=== PATIENT | male | born 1960 | race Caucasian/White ===

== ENCOUNTER → 2019-11-24 13:49 | Outpatient (CLI) | payer OTHER, SELFPAY ==
--- NOTE | ~2019-11-24 | XR_ITS ---
EXAMINATION: XR chest 2V DATE: 11/24/2019 14:09 INDICATION: Cough. TECHNIQUE: Frontal and lateral views of the chest were obtained. COMPARISON: CT abdomen and pelvis 11/20/2018 FINDINGS: The chest demonstrates clear lungs without pneumonia, pleural effusion, or pneumothorax. Th e heart size is normal. There is a prominent left paracardial fat pad. IMPRESSION: 1. No acute cardiopulmonary disease. Reviewed, dictated and finalized at location A. IPPING CLERK
== END ==
PROVIDERS: PCP Family Medicine; Visit Provider Family Medicine
DX: R05 Cough (principal)
CPT/HCPCS: 71046

== ENCOUNTER 2020-11-13 09:17 | Outpatient (CLI) | payer OTHER, SELFPAY ==
--- NOTE | 2020-11-30 12:39 | WPDHOMESLEEP ---
Sleep Study - Home Unattended Date of Study: 11/13/20 Ordering Provider: Karthikeyan Tyler MD Interpreting Provider: Erin Moura MD Home Sleep Study Type: Apnea Link Air Height: 1.75 m Weight: 164.654 kg Body Mass Index: 53.6 Neck Circumference (inches): 18.5 Coggon: 11 Reason for Sleep Study Difficulty staying asleep, waking at night to urinate, occasional insomnia Sleep History Valentino Winn is a 60 year old man who at times has difficulty getting to sleep and staying asleep. This has been going on for up to 10 years. He routinely wakes up at least twice to urinate. He rarely awakens from sleep feeling short of breath. He occasionally awakens at night with heartburn, belching or coughing. He rarely snores loudly enough that others complain. He occasionally has trouble sleep with a cold. He rarely wakes up gasping for breath at night. He rarely has breathing problems at night observed by others. He occasionally sweats excessively night, rarely notices his heart pounding or beating irregularly at night. He frequently falls asleep during the day but never involuntarily. He rarely falls asleep while driving. He does not fall asleep while exerting physical effort. He does not have loss of muscle tone with strong emotion. He rarely has daytime difficulties due to excessive sleepiness. He does not feel paralyzed on waking or falling asleep and does not have vivid dream like scenes upon awakening or falling asleep. He never feels afraid to go to sleep. He rarely has nightmares. He occasionally remembers his dreams. He frequently has racing thoughts. He rarely feels sad depressed or anxious. He frequently has muscular tension. He never notices parts of his body jerking. He does not kick at night. He occasionally has crawling and aching feelings in his legs and occasionally has leg cramps at night. He does not have morning jaw pain. He rarely grinds his teeth during sleep. He occasionally has bothered by pain during the day. He rarely is awakened by pain at night. He frequently wakes up feeling stiff in the morning with sore achy muscles and pain in the neck and spine. He has dizziness on rare occasion, insomnia, fatigue and feels tense. His normal bedtime is 9:00 p.m. falling asleep within 20 minutes, typically waking 2-3 times at night to urinate. While awake he may watch television. He often is able to return to sleep within 5 minutes. He wakes the morning at 4:45 a.m.. On weekends he stays awake later, 11:00 p.m. and wakes later between 7 and 8:00 a.m.. He estimates getting 6-7 hours of sleep at night. He takes naps in the afternoon or evening. He may feel refreshed after short nap. Most of the time he feels good in the morning. Habits: He smoked tobacco years ago. He drinks caffeine 3 cups a day. No alcohol or recreational drugs. [facility] Past Medical History Medical History HTN (hypertension), benign Morbid obesity with BMI of 50.0-59.9, adult Rotator cuff dysfunction (~2017) Sexual dysfunction Sleep disorder Surgical History Surgical History H/O eye surgery H/O hernia repair (~1987) Family History Family History Grandparent Diabetes mellitus Social History Social History Smoking status: Never smoker Smoking end date: 09/28/83 Alcohol intake: current Medications Home Medications Medication Instructions Recorded Confirmed Type aspirin 81 mg tablet,delayed 81 mg PO DAILY 11/09/19 10/03/20 History release multivitamin 1 tablet PO DAILY 11/09/19 10/03/20 History cinnamon bark 500 mg capsule 1,000 mg PO DAILY cap 10/03/20 10/03/20 History cyanocobalamin (vitamin B-12) 2,500 mcg PO DAILY 10/03/20 10/03/20 History 2,500 mcg tablet potassium gluconate 600 mg (
[2020-11-30 12:45] VITALS: BMI 53.6
== END 2020-11-13 09:18 | disposition home or self-care (01) ==
LOC: ANHCSM 09:18
PROVIDERS: PCP Family Medicine; Visit Provider Family Medicine
DX: G47.33 Obstructive sleep apnea (adult) (pediatric) (principal)
CPT/HCPCS: 95806

== ENCOUNTER 2020-12-10 16:32 | Outpatient (CLI) | payer OTHER, SELFPAY | END 2020-12-10 16:33 | disposition home or self-care (01) | LOC: ANHCOVIDVC 16:33 | PROVIDERS: PCP Family Medicine | DX: Z23 Encounter for immunization (principal) | CPT/HCPCS: 0001A; 91300 ==

== ENCOUNTER → 2020-12-25 00:31 | Outpatient (CLI) | payer OTHER, SELFPAY ==
[2020-12-25 18:30] LABS: SARS-CoV-2 RNA PCR Negative
== END ==
PROVIDERS: PCP Family Medicine; Visit Provider Internal Medicine Critical Care Medicine
DX: Z01.812 Encounter for preprocedural laboratory examination (principal); Z20.822 Contact with and (suspected) exposure to COVID-19
CPT/HCPCS: C9803; U0003; U0005

== ENCOUNTER 2020-12-27 06:59 | Outpatient (CLI) | payer OTHER, SELFPAY ==
--- NOTE | 2021-01-11 10:46 | WPDSLEEPSTUD ---
Sleep Study Ordering Provider: Karthikeyan Tyler MD Interpreting Physician: Deepak Cervantes MD Sleep Study Type: CPAP Titration Height: 1.78 m Weight: 149.685 kg Body Mass Index: 47.3 Neck Circumference (inches): 18 Jackson: 0 Reason for Sleep Study This patient has had prior sleep study in October of 2020 documenting presence of severe obstructive sleep apnea. 15% of his apneic events were either central or mixed variety. For this reason the patient was recommended to have in-lab positive airway pressure titration. Sleep History History of snoring, poor quality of sleep. During his home sleep study patient mentioned moderate sleepiness with an Jackson scale of 11/24. . History of hypertension and erectile dysfunction. [facility] Past Medical History Medical History HTN (hypertension), benign Morbid obesity with BMI of 50.0-59.9, adult Rotator cuff dysfunction (~2017) Sexual dysfunction Sleep disorder Surgical History Surgical History H/O eye surgery H/O hernia repair (~1987) Family History Family History Grandparent Diabetes mellitus Social History Social History Smoking end date: 09/28/83 Alcohol intake: current Medications Home Medications Medication Instructions Recorded Confirmed Type aspirin 81 mg tablet,delayed 81 mg PO DAILY 11/09/19 10/03/20 History release multivitamin 1 tablet PO DAILY 11/09/19 10/03/20 History cinnamon bark 500 mg capsule 1,000 mg PO DAILY cap 10/03/20 10/03/20 History cyanocobalamin (vitamin B-12) 2,500 mcg PO DAILY 10/03/20 10/03/20 History 2,500 mcg tablet potassium gluconate 600 mg (99 mg) 600 mg PO DAILY 10/03/20 10/03/20 History tablet sildenafil 100 mg tablet 100 mg PO DAILY PRN #10 tablet 10/03/20 10/03/20 Rx lisinopril 20 mg tablet 20 mg PO DAILY #90 tablet 11/22/20 Rx Sleep Procedure Patient underwent overnight polysomnographic evaluation for positive airway pressure titration. Patient was started on a CPAP of 5 cm however quickly became intolerant and was subsequently titrated on BiPAP mode. Patient used ResMed air F-30 fullface mask. The size of the mask was not mentioned. Sleep Architecture Total recording time 445 minutes, total sleep time 392 minutes, sleep efficiency 88.1%. Sleep latency 6 minutes, REM latency 86 minutes. Awake after sleep onset 46 minutes, stage N1 3.9%, N2 59.9%, N3 0%, stage R 36.2%. Supine sleep 98.3%, supine REM sleep 36.2%. Respiratory Analysis AASM criteria used Patient had 9 apneas with index 1.4, obstructive 5 with index 0.8, central 4 with index 0.6 . There were 40 hypopneas with index 6.1 . AHI 7.5. REM index 14.4, non-REM index 3.6. Supine index 7.3, nonsupine index 18.5. Arousals Total arousals 57 with index 7.7. Spontaneous arousals 34, snores arousals 16, hypopnea arousals 4, apnea arousals 1, leg movement arousals 2. Periodic Limb Movements There were 11 leg movements with index 1.7, 2 arousals with index 0.3. No PLM. Oximetry Data Mean oxygen saturation 93%, lowest saturation 84%. .SaO2<90%-9.2Min, SaO2<88%-1.1Min. Snoring Profile Moderate snoring, was continuous during lower pressure settings. Cardiac Profile Normal sinus rhythm with average heart rate 53 beats per minute, range 27 to 141 beats per minute. EEG Profile Unremarkable EEG. Assessment and Plan Additional Plan Diagnosis -SHANITA G44.37 as noted patient was intolerant of CPAP even at 5 cm. Patient was therefore titrated on BiPAP. Patient use F-30 full face mask. Patient was started on BiPAP at a low level of 8/4 cm and because of obstructive events and snoring was increased to a maximum level of 24/20 cm. At 24/20 cm BiPAP - 51 minutes of trial was performed with 90% sleep effi
[2021-01-11 11:09] VITALS: BMI 47.3
== END 2020-12-27 07:00 | disposition home or self-care (01) ==
LOC: ANHCSM 06:59
PROVIDERS: PCP Family Medicine; Visit Provider Family Medicine
DX: G47.33 Obstructive sleep apnea (adult) (pediatric) (principal)
CPT/HCPCS: 95811

== ENCOUNTER 2020-12-31 16:31 | Outpatient (CLI) | payer OTHER, SELFPAY | END 2020-12-31 16:32 | disposition home or self-care (01) | LOC: ANHCOVIDVC 16:31 | PROVIDERS: PCP Family Medicine | DX: Z23 Encounter for immunization (principal) | CPT/HCPCS: 0002A; 91300 ==

== ENCOUNTER → 2021-01-26 08:20 | Outpatient (CLI) | payer OTHER, SELFPAY ==
--- NOTE | ~2021-01-26 | MR_ITS ---
EXAMINATION: MR femur LT wo con, MR knee LT wo con DATE: 01/26/2021 INDICATION: Left knee and posterior thigh pain. TECHNIQUE: 1. Magnetic resonance imaging (MRI) of the left thigh/femur was performed without intravenous contras t. Sequences included axial T1-weighted FSE, axial T2-weighted FS FSE, coronal T1-weighted FSE, coron al fluid sensitive FSE STIR, sagittal T1-weighted FSE and sagittal fluid sensitive FSE STIR. The cont ralateral right thigh is included on the coronal images. 2. MRI of the left knee was performed without intravenous contrast. Sequences included coronal PD-we ighted FSE, coronal PD-weighted FS FSE, sagittal T2-weighted FSE, sagittal PD-weighted FS FSE and axi al PD weighted fat saturated FSE. COMPARISON: None. FINDINGS: Left thigh/femur: Bone marrow signal is normal throughout the bilateral femurs and visualized inferior pelvis. There is relatively symmetric moderate fatty atrophy versus infiltration of the semimembranosus and biceps fe kenney muscles in both eyes. Remaining musculature of the bilateral thighs appears normal. The proxima l hamstring tendons at their ischial tuberosity origin appear normal with no evident tear. Left hip j oint appears unremarkable with no joint effusion. Neurovascular structures in the left thigh appear n ormal. No abnormal mass or fluid collections identified. Left knee: Medial compartment: Additional horizontal tear extending to the inferior articular surface at the posterior horn of the m edial meniscus. There is some chondral surface regularity and underlying subtle irregularity to the a rticular cortex at the posterior weightbearing medial femoral condyle. Cartilage at the anterior to c entral weightbearing medial femoral condyle and medial tibial plateau appear relatively preserved. Lateral compartment: Lateral meniscus is normal. Partial-thickness chondral fissuring along the posterior margin of the la teral tibial plateau. Patellofemoral compartment: Small focus of deep chondral ulceration with underlying mild cortical irregularity at the inferior as pect of the medial trochlea. Remaining patellofemoral cartilage appears relatively preserved. Ligaments and tendons: Anterior and posterior cruciate ligaments are normal. The fibular collateral ligament complex is norm al. There is mild fluid signal surrounding the otherwise normal-appearing proximal medial collateral ligament which could be related to low-grade sprain if there has been prior acute injury or extension of reactive edema related to the medial meniscal tear. The extensor mechanism is normal. The visuali zed medial and lateral hamstring tendons as well as the iliotibial band are normal. Fluid: Physiologic amount of fluid in the joint space. No loose osteochondral bodies identified. Osseous/other: Normal marrow signal. No fracture or abnormal marrow replacing process. IMPRESSION: 1. Medial meniscal tear. 2. Minimal tricompartmental osteoarthritis with small regions of high-grade chondromalacia in the pat ellofemoral and medial compartments and small region of moderate grade chondral malacia in the latera l compartment as detailed above. 3. Edema along the margins of the normal-appearing proximal medial collateral ligament. In the settin g of an acute injury this would be consistent with a low-grade sprain. The absence of recent trauma t his more likely represents extension of reactive edema related to the meniscal tear. 4. Moderate fatty atrophy/infiltration of the semimembranosus and biceps femoris muscle bellies which appears relatively symmetric with the contralateral right semimembranosus and biceps femoris muscle bellies which is of indeterminate etiology. The symmetric pattern and relatively diffuse involvement of each of the muscles argues against infectious, neurogenic, rheumatologic or post traumatic etiolog ies and may represent ag
== END ==
PROVIDERS: PCP Family Medicine; Visit Provider Physician Assistant Medical
DX: S83.242A Other tear of medial meniscus, current injury, left knee, initial encounter (principal); X58.XXXA Exposure to other specified factors, initial encounter; M25.562 Pain in left knee
CPT/HCPCS: 73721

== ENCOUNTER → 2021-04-08 11:59 | Outpatient (CLI) | payer OTHER, SELFPAY ==
--- NOTE | ~2021-04-08 | XR_ITS ---
EXAMINATION: XR lumbar spine min 4V EXAM DATE: 04/08/2021 13:17 INDICATION: M54.5 - Low back pain. TECHNIQUE: Lumber spine frontal, lateral, bilateral oblique projections. Coned down frontal and lat eral L5-S1 lumbar projections for interpretation. Comparison is made to prior examination from . FINDINGS: There is mild lumbar levoscoliosis. There is about 5 mm anterolisthesis L4 on L5. Moderate loss of the L5-S1 disc height, mild at the other lumbar levels. There is moderate lower lumbar facet arthropathy. Minimal abdominal aortic arteriosclerosis. There are no acute fractures identified. Sacr um, sacroiliac joints, sacral arcuate lines are intact. Difficult to identify significant interval ch juan compared to 2019. IMPRESSION: 1. Moderate lower lumbar spondylosis. 2. Grade 1 anterolisthesis L4 on L5. Reviewed, dictated and finalized at location A.
== END ==
PROVIDERS: PCP Family Medicine; Visit Provider Physician Assistant
DX: M47.896 Other spondylosis, lumbar region (principal)
CPT/HCPCS: 72110

== ENCOUNTER 2021-07-11 07:56 | Outpatient (CLI) | payer OTHER, SELFPAY ==
--- NOTE | 2021-07-11 08:00 | ECG_ITS ---
Measurements Intervals Simpson Rate: 64 P: 35 LA: 211 QRS: -27 QRSD: 102 T: 58 QT: 402 QTc: 416 Interpretive Statements SINUS RHYTHM WITH FIRST DEGREE AV BLOCK INCOMPLETE RIGHT BUNDLE BRANCH BLOCK DELAYED PRECORDIAL R/S TRANSITION BASELINE ARTIFACT- I, III, AVL, V5-V6 ABNORMAL ECG Electronically Signed On 07-11-2021 8:35:56 CDT by Tay Corado D.O.
[2021-07-11 09:01] LABS: Anion Gap 10 mmol/L (8-16); Blood Urea Nitrogen 24 mg/dL (9-20); Calcium 9.1 mg/dL (8.4-10.2); Carbon Dioxide 26 mmol/L (22-30); Chloride 107 mmol/L (98-107); Estimated Glomerular Filt Rate > 60; Glucose 102 mg/dL (65-110); Sodium 143 mmol/L (137-145)
== END 2021-07-11 07:57 | disposition home or self-care (01) ==
PROVIDERS: Anesthesiology; PCP Family Medicine; Visit Provider Orthopaedic Surgery
DX: I10 Essential (primary) hypertension (principal); Z79.899 Other long term (current) drug therapy; Z01.818 Encounter for other preprocedural examination; I45.10 Unspecified right bundle-branch block; I44.0 Atrioventricular block, first degree
CPT/HCPCS: 36415; 80048; 93005

== ENCOUNTER 2021-07-15 01:12 | Day surgery (SDC) | payer OTHER, SELFPAY ==
[2021-07-09 15:00] VITALS: BMI 51.6
[2021-07-15] VITALS (9 sets, daily range): BP systolic 117–151; BP diastolic 73–93; PULSE 55–76; RESP 15–20; TEMP 36.2–37; O2SAT 94–98
[2021-07-15] MEDS: LACTATED RINGERS 1,000 ML 30 ML IV CONT ×2 (09:00→11:12)
[2021-07-15] MEDS: ACETAMINOPHEN 500 MG TABLET 1000 MG PO (09:17)
[2021-07-15] MEDS: KETOROLAC 15 MG/ML VIAL (*BKC) IV PUSH (09:19)
--- NOTE | 2021-07-15 09:23 | WPDHPUPDATE1 ---
History and Physical Update Update Date/Time: 07/15/21 09:23 History and Physical has been reviewed, including an updated exam of the patient. There are NO changes in the patient's condition. Risks, benefits, and alternatives have been discussed and questions answered. Patient agrees to proceed with procedure.
--- NOTE | 2021-07-15 09:48 | WPDANESEPPF ---
Anes - Initial Pre Proc Eval Procedure: Operation Date: 07/15/21 10:30 Proposed Procedures p Left Knee Arthroscopy, Partial Meniscectomy - Alonso Martino MD Date/Time: 07/15/21 09:48 Surgeon: Alonso Martino MD Pre Op Diagnosis: left knee medial meniscal tear Patient Data Age: 60 Gender: M Height: 1.78 m Weight: 163.29 kg Allergies Allergy/AdvReac Type Severity Reaction Status Date / Time Penicillins Allergy Unknown Rash Verified 07/09/21 14:58 amlodipine AdvReac Intermediate feet Verified 07/09/21 14:58 swelling Home Medications Medication Instructions Recorded Confirmed Type aspirin 81 mg tablet,delayed 81 mg PO DAILY 11/09/19 07/11/21 History release multivitamin 1 tablet PO DAILY 11/09/19 07/11/21 History cinnamon bark 500 mg capsule 1,000 mg PO DAILY cap 10/03/20 07/11/21 History cyanocobalamin (vitamin B-12) 2,500 mcg PO DAILY 10/03/20 07/11/21 History 2,500 mcg tablet sildenafil 100 mg tablet 100 mg PO DAILY PRN #10 tablet 10/03/20 07/11/21 Rx lisinopril 40 mg tablet 40 mg PO DAILY #90 tablet 03/25/21 07/11/21 Rx naproxen sodium 220 mg tablet 220 mg PO BID PRN 04/08/21 07/11/21 History hydrochlorothiazide 12.5 mg tablet 12.5 mg PO DAILY #90 tablet 06/10/21 07/11/21 Rx Patient hx anesthesia problems: none Family hx anesthesia problems: none Results Review: All pre-operative results and documents have been reviewed as part of the pre-operative evaluation. [facility] Past Medical History Medical History HTN (hypertension), benign Morbid obesity with BMI of 50.0-59.9, adult Osteoarthritis of left knee Rotator cuff dysfunction (~2017) Sexual dysfunction Sleep disorder Tear of medial meniscus of left knee Surgical History Surgical History H/O eye surgery H/O hernia repair (~1987) Family History Family History Grandparent Diabetes mellitus Social History Social History Years smoked: 10 Tobacco type: cigarettes Smoking end date: 09/28/83 Alcohol intake: current Drinks per week: 1 Substance use: never Substance use type: does not use Living arrangements: with family Gender identity (if verbalized by the patient): Male Spiritual care concerns: No Anes - Eval Final PreProcedure Day of Procedure 07/15/21 09:48 Patient weight: super morbidly obese Heart: regular rate and rhythm Lungs: clear to auscultation and normal air movement Airway: Mallampati scale class II Neurological: alert and oriented Last oral intake: >/= 8 hours ASA classification: III Emergent: no Anesthetic plan: proceed Anesthesia type and monitoring: general LMA and standard monitoring Results Review: All pre-operative results and documents have been reviewed as part of the pre-operative evaluation. Informed Consent: The patient's anesthetic plan and its attendant risks and benefits were discussed with the patient/family/POA. Questions were solicited and answers provided to the satisfaction of the patient/family/POA.
[2021-07-15] MEDS: ceFAZolin 3 GM/D5W 100 ML 100 ML IVPB (10:07)
[2021-07-15] MEDS: LIDOCAINE HCL 1% PF 30 ML VIAL INFILTRATE (11:10)
--- NOTE | 2021-07-15 11:14 | P.OP_ITS ---
Procedure Note - Detailed Date of Procedure 07/15/21 Pre-op Diagnosis left knee medial meniscal tear Post-op Diagnosis same Procedure Performed Left knee arthroscopy, partial medial meniscectomy Surgeon Alonso Martino MD Anesthesia general Description of Procedure The patient was identified and proper site identified. He was taken to the operating room and transferred to the OR table placing her supine taking care to pad the torso and extremities. After general anesthetic induction and intubation, a nonsterile tourniquet was placed high on the left thigh but was not inflated. The left lower extremity was positioned, prepped and draped in usual sterile fashion. 10 cc of 1% lidocaine was injected into the subcutaneous tissue in the area of the portals at start of the procedure, and an additional 10 at the end. The portals were established and the arthroscopy was carried out. In the anterior compartment the articular cartilage was in excellent shape. Medial latter gutters were clear. Lateral articular meniscal cartilage was in excellent shape. Anterior posterior cruciate ligaments were in continuity. There is extensive grade 2 changes the weight-bearing portion medial femoral condyle complex tear of the medial meniscus at the junction between the posterior horn and midbody. The meniscus was trimmed back to stable rim with basket forceps and shaver. The ArthroCare Wand was used for intra- articular hemostasis. The knee was flushed with a copious amount of arthroscopic fluid and equipment was removed. Portals were closed with three O nylon suture and a sterile dressing was applied. He tolerated the procedure well, was awakened, extubated and taken to recovery area in stable condition. There were no known intraoperative complications. Estimated blood loss was negligible. He received perioperative antibiotics. Tourniquet Time 0 Drains No Packing No Pathology none sent Complications No immediate complications Condition stable
== END 2021-07-15 13:00 | disposition home or self-care (01) ==
PROVIDERS: PCP Family Medicine; Visit Provider Orthopaedic Surgery
PROC: (CPT 29870; principal; 2021-07-15 10:30)
DX: M23.232 Derangement of other medial meniscus due to old tear or injury, left knee (principal); Z87.891 Personal history of nicotine dependence; I10 Essential (primary) hypertension; G47.9 Sleep disorder, unspecified; Z79.82 Long term (current) use of aspirin; E66.01 Morbid (severe) obesity due to excess calories; Z68.43 Body mass index [BMI] 50.0-59.9, adult
CPT/HCPCS: 29881; 36415; 80048; 93005; A9270; J0690; J1885; J2250; J2270; J2405; J2704; J7120

== ENCOUNTER 2021-07-25 17:21 | Emergency (ER) | payer OTHER, SELFPAY ==
[2021-07-25 17:27] VITALS: BP 153/103; PULSE 82; RESP 16; TEMP 36.7; O2SAT 96
--- NOTE | 2021-07-25 17:34 | ED.DIZZY ---
HPI - Dizziness General Chief Complaint: Dizziness Stated Complaint: dizzy Time Seen by Provider: 07/25/21 17:39 Source: patient and RN notes reviewed Mode of arrival: ambulatory Limitations: no limitations History of Present Illness HPI Narrative: 61-year-old male presents with concern for dizziness, near syncope, high blood pressure. Reports symptoms started last night, dizziness that made it difficult for him to stand up. He denies any exacerbating or relieving factors. He denies chest pain, shortness of breath, general malaise. Denies recent illness, nasal congestion, ear pain, headache, thunderclap headache, weakness in any extremity, vision changes. MD elicited complaint: dizziness and near syncope Related Data Home Medications Medication Instructions Recorded Confirmed aspirin 81 mg tablet,delayed 81 mg PO DAILY 11/09/19 07/25/21 release multivitamin 1 tablet PO DAILY 11/09/19 07/25/21 cinnamon bark 500 mg capsule 1,000 mg PO DAILY cap 10/03/20 07/25/21 cyanocobalamin (vitamin B-12) 2,500 mcg PO DAILY 10/03/20 07/25/21 2,500 mcg tablet naproxen sodium 220 mg tablet 220 mg PO BID PRN 04/08/21 07/25/21 Allergies Allergy/AdvReac Type Severity Reaction Status Date / Time Penicillins Allergy Unknown Rash Verified 07/25/21 17:31 amlodipine AdvReac Intermediate feet Verified 07/25/21 17:31 swelling Review of Systems Review of Systems: CONSTITUTIONAL: Denies malaise, chills, sweats, or fever. EYES: Denies visual changes, redness, or discharge. ENT: Denies rhinorrhea, congestion, sinus pain, otalgia or sore throat. CARDIOVASCULAR: Denies chest pain, palpitations, or edema. Reports near syncope RESPIRATORY: Denies cough or dyspnea. GASTROINTESTINAL: Denies abdominal pain, nausea, vomiting, diarrhea SKIN: Denies rash or itching. MUSCULOSKELETAL: Denies myalgia. NEUROLOGIC: Denies numbness, weakness, or headache. Reports dizziness All systems reviewed & are unremarkable except as noted in HPI and below PMFSH Past Medical History Medical History (Updated 07/25/21 @ 17:53 by Sylvia Ferrer NP) HTN (hypertension), benign Morbid obesity with BMI of 50.0-59.9, adult Osteoarthritis of left knee Rotator cuff dysfunction (~2017) Sexual dysfunction Sleep disorder Tear of medial meniscus of left knee Surgical History Surgical History (Updated 07/15/21 @ 11:13 by Alonso Martino MD) H/O eye surgery H/O hernia repair (~1987) History of arthroscopy of left knee Partial medial meniscectomy July 15, 2021 Family History Family History Grandparent Diabetes mellitus Social History Social History Years smoked: 10 Tobacco type: cigarettes Smoking end date: 09/28/83 Alcohol intake: current Drinks per week: 1 Substance use: never Substance use type: does not use Gender identity (if verbalized by the patient): Male Spiritual care concerns: No Comments At time of signature, agree with nursing past medical, surgical, social and family history. There is no relevant family history pertinent to the presenting complaint Exam Narrative: GENERAL: Well-appearing, well-nourished, and in no acute distress. HEAD: Normocephalic, atraumatic. EYES: PERRLA, sclera clear, and EOMI. No nystagmus. ENT: Mucous membranes moist. NECK: Supple. CHEST: No respiratory distress. Clear to auscultation. No bony deformities, no asymmetry. Speaks in full sentences. HEART: Regular rate and rhythm. No murmur heard. Normal peripheral pulses. SKIN: Warm, dry, no visible rash. NEURO: Alert and oriented x3. No focal deficits. PSYCH: Normal mood and affect Course Course Emergency Course: Patient is aware of, understands and agrees to transfer to emergency department. Patient agrees to proceed directly to the emergency department. Portions of this record may have been created with voice recognition softwar
--- NOTE | 2021-07-25 17:37 | ECG_ITS ---
Measurements Intervals [place] Rate: 72 P: 37 LA: 200 QRS: -30 QRSD: 99 T: 67 QT: 373 QTc: 410 Interpretive Statements SINUS RHYTHM WITH SINUS ARRHYTHMIA INCOMPLETE RIGHT BUNDLE BRANCH BLOCK BORDERLINE ECG Electronically Signed On 07-26-2021 8:15:57 CDT by Tay Corado D.O.
== END 2021-07-25 17:47 | disposition short-term general hospital (02) ==
PROVIDERS: Emergency Provider Nurse Practitioner; PCP Family Medicine
DX: R42 Dizziness and giddiness (principal); F17.210 Nicotine dependence, cigarettes, uncomplicated; I10 Essential (primary) hypertension; E66.01 Morbid (severe) obesity due to excess calories; Z68.43 Body mass index [BMI] 50.0-59.9, adult; M17.10 Unilateral primary osteoarthritis, unspecified knee
CPT/HCPCS: 93005; 99213; G0463

== ENCOUNTER 2021-07-25 18:17 | Emergency (ER) | payer OTHER, SELFPAY ==
--- NOTE | ~2021-07-25 | XR_ITS ---
EXAMINATION: XR chest 2V 07/25/2021 19:19 INDICATION: Hypertension. Dizziness. PROCEDURE: 2 view chest COMPARISON: 11/24/2019 FINDINGS: The lungs are clear. The cardiomediastinal silhouette is within normal limits. There are no pleural effusions. There is no pneumothorax suspected. IMPRESSION: 1: NO ACUTE CARDIOPULMONARY DISEASE. Reviewed, dictated and finalized at location A.
[2021-07-25 18:32] VITALS: BP 182/101; PULSE 64; RESP 16; TEMP 36.2; O2SAT 97
--- NOTE | 2021-07-25 18:36 | ECG_ITS ---
Measurements Intervals [place] Rate: 59 P: 40 AL: 209 QRS: -26 QRSD: 104 T: 67 QT: 406 QTc: 405 Interpretive Statements SINUS BRADYCARDIA BORDERLINE AV CONDUCTION DELAY INCOMPLETE RIGHT BUNDLE BRANCH BLOCK DELAYED PRECORDIAL R/S TRANSITION BORDERLINE ECG Electronically Signed On 07-26-2021 8:16:27 CDT by Tay Corado D.O.
[2021-07-25 19:18] LABS: Basophils Absolute Auto 0.1 K/mm3 (0.0-0.1); Eosinophils Absolute Auto 0.5 K/mm3 (0-0.3); Eosinophils Percent Auto 6.1 % (0-4.4); Hematocrit 45.2 % (42.0-52.0); Hemoglobin 14.6 g/dL (14.0-18.0); Immature Granulocyte Absolute 0.05 K/mm3 (0.00-0.031); Immature Granulocyte Percent A 0.6 % (0-0.5); Lymphocytes Absolute Auto 1.04 K/mm3 (0.9-3.2); Lymphocytes Percent Auto 12.6 % (18.3-44.2); Mean Corpuscular HGB Conc 32.3 g/dl (32-36); Mean Corpuscular Hemoglobin 28.5 pg (26-34); Mean Corpuscular Volume 88.1 fl (80-100); Mean Platelet Volume 9.6 fl (7.4-10.4); Monocytes Absolute Auto 0.7 K/mm3 (0.1-0.6); Monocytes Percent Auto 8.5 % (2.6-8.5); Neutrophils Absolute Auto 5.9 K/mm3 (1.3-6.7); Neutrophils Percent Auto 71.2 % (45.5-73.1); Platelet Count Result 252 k/mm3 (150-375); Red Blood Count 5.13 M/mm3 (4.6-6.20); Red Cell Distribution Width 13.6 % (11.5-14.5); White Blood Count 8.3 K/mm3 (4.5-10.0)
[2021-07-25 19:28] LABS: Anion Gap 10 mmol/L (8-16); Blood Urea Nitrogen 21 mg/dL (9-20); Calcium 9.7 mg/dL (8.4-10.2); Carbon Dioxide 25 mmol/L (22-30); Chloride 104 mmol/L (98-107); Estimated CRCL calculation 126 ml/min; Estimated Glomerular Filt Rate > 60; Glucose 116 mg/dL (65-110); Potassium 3.9 mmol/L (3.4-5.0); Sodium 139 mmol/L (137-145)
[2021-07-25 19:35] LABS: INR 0.9; Prothrombin Time 12.1 Seconds (11.1-14.7)
[2021-07-25 19:36] LABS: Partial Thromboplastin Time 30.3 SECONDS (22.3-36.8)
[2021-07-25 19:40] LABS: Troponin I < 0.012 ng/mL (0.000-0.034)
[2021-07-25] MEDS: MECLIZINE HCL 25 MG TABLET PO (21:21)
[2021-07-25] MEDS: SODIUM CHLORIDE 0.9% IV 1,000 ML 999 ML IV CONT (21:35)
[2021-07-25 22:09] LABS: Troponin I < 0.012 ng/mL (0.000-0.034)
[2021-07-25 22:50] VITALS: BP 157/97; PULSE 56; RESP 16; O2SAT 98
--- NOTE | 2021-07-25 22:56 | ED.GENADULT ---
HPI - General Adult General Chief complaint: Dizziness Stated complaint: dizzy Time Seen by Provider: 07/25/21 20:09 History of Present Illness HPI narrative: Patient is a 61-year-old male who presents to the ER with dizziness. Ongoing throughout the day. Associate with ringing in his ears. Reports he has had some mild sinus issues but nothing significant. No fevers or chills or sweats. No cough or sore throat. Reports dizziness is worse with moving his head and positional change. No weakness or numbness of an arm or leg. Related Data Home Medications Medication Instructions Recorded Confirmed aspirin 81 mg tablet,delayed 81 mg PO DAILY 11/09/19 07/25/21 release multivitamin 1 tablet PO DAILY 11/09/19 07/25/21 cinnamon bark 500 mg capsule 1,000 mg PO DAILY cap 10/03/20 07/25/21 cyanocobalamin (vitamin B-12) 2,500 mcg PO DAILY 10/03/20 07/25/21 2,500 mcg tablet naproxen sodium 220 mg tablet 220 mg PO BID PRN 04/08/21 07/25/21 Allergies Allergy/AdvReac Type Severity Reaction Status Date / Time Penicillins Allergy Unknown Rash Verified 07/25/21 17:31 amlodipine AdvReac Intermediate feet Verified 07/25/21 17:31 swelling Review of Systems Review of Systems: All systems reviewed & are unremarkable except as noted in HPI and below Constitutional: Constitutional: Denies chills, Denies fever(s) and Denies weakness ENT: Reports vertigo, Denies nasal congestion and Denies sore throat Comments: Tinnitus Cardiovascular: Cardiovascular: Denies chest pain, Denies rapid heart rate and Denies radiating jaw, neck or arm pain Respiratory: Respiratory: Denies cough and Denies dyspnea Gastrointestinal: Gastrointestinal: Denies diarrhea, Reports nausea and Denies vomiting Neurologic: Reports dizziness, Denies headache(s), Denies focal weakness and Denies numbness PMF Past Medical History Medical History (Updated 07/25/21 @ 23:00 by Kris Rhodes MD) HTN (hypertension), benign Morbid obesity with BMI of 50.0-59.9, adult Osteoarthritis of left knee Rotator cuff dysfunction (~2018) Sexual dysfunction Sleep disorder Tear of medial meniscus of left knee Surgical History Surgical History (Updated 07/15/21 @ 11:13 by Alonso Martino MD) H/O eye surgery H/O hernia repair (~1987) History of arthroscopy of left knee Partial medial meniscectomy July 15, 2021 Family History Family History Grandparent Diabetes mellitus Social History Social History Years smoked: 10 Tobacco type: cigarettes Smoking end date: 09/28/83 Alcohol intake: current Drinks per week: 1 Substance use: never Substance use type: does not use Gender identity (if verbalized by the patient): Male Spiritual care concerns: No Exam Narrative: GENERAL: Well-appearing, obese, and in no acute distress. HEAD: Normocephalic, atraumatic. EYES: PERRL and EOMI. ENT: TMs normal bilaterally. CHEST: Clear to auscultation. No respiratory distress. HEART: Regular rate and rhythm. Normal peripheral pulses. EXTREMITIES: Normal range of motion. No edema. SKIN: Warm, dry, no rash. NEURO: Alert and oriented x3. PSYCH: Normal mood and affect. Course Course Emergency Course: Patient resting comfortably. Feels improved with IV fluid and meclizine. Discharge home with supportive therapy. Recommend follow-up with PCP. ASSEMBLY PERSON at urgent care concerned about EKG being different from previous, EKG looks similar with exception of improved artifact and V5/V6. Vital Signs Vital signs: Vital Signs Temperature 97.2 F L 07/25/21 18:32 Pulse Rate 64 07/25/21 18:32 Respiratory Rate 16 07/25/21 18:32 Blood Pressure 182/101 H 07/25/21 18:32 Pulse Oximetry 97 07/25/21 18:32 Temperature 97.2 F L 07/25/21 18:32 Pulse Rate 56 L 07/25/21 22:50 Respiratory Rate 16 07/25/21 22:50 Blood Pressure 157/97 H 07/25
[2021-07-25 23:43] VITALS: BP 158/96; PULSE 60; RESP 20; O2SAT 98
== END 2021-07-25 23:44 | disposition home or self-care (01) ==
PROVIDERS: Emergency Provider Emergency Medicine; PCP Family Medicine
DX: H81.399 Other peripheral vertigo, unspecified ear (principal); Z79.82 Long term (current) use of aspirin; I10 Essential (primary) hypertension; E66.01 Morbid (severe) obesity due to excess calories; Z68.43 Body mass index [BMI] 50.0-59.9, adult; M17.12 Unilateral primary osteoarthritis, left knee; F17.210 Nicotine dependence, cigarettes, uncomplicated; R00.1 Bradycardia, unspecified; R94.31 Abnormal electrocardiogram [ECG] [EKG]; I45.10 Unspecified right bundle-branch block
CPT/HCPCS: 36415; 71046; 80048; 84484; 85025; 85610; 85730; 93005; 99284; A9270; J7030

== ENCOUNTER 2021-08-06 09:15 | Outpatient (RCR) | payer OTHER, SELFPAY ==
--- NOTE | 2021-07-17 17:46 | PTOPEVAL ---
PHYSICAL THERAPY EVALUATION AND PLAN OF CARE Thank you for referring Valentino Winn to [facility].? The patient is scheduled to be seen for therapy? 2X/week for 4 weeks. Please review, sign, date and return this plan of care JANNETTE. I agree with and certify that the following plan of care is medically necessary. Referring Physician Date Attending Provider: Alonso Martino MD Evaluation Outpatient Past Medical History Cardiovascular History Hx Hypertension Yes Respiratory History Hx Sleep Apnea Yes: WEARS CPAP Musculoskeletal History Hx Arthritis Yes Hx Crutches or Walker Use Yes: CRUTCHES Query Text:If Yes, Enter Crutches, Walker, or Both in the Comment Hx Fractures Yes: ARM, TIBIA, FACIAL ORBIT, FINGERS Hx Orthopedic Surgery Yes: RT RCR Hx Other Musculoskeletal Disorders Yes: LT MENISCAL TEAR CURRENTLY Anesthesia History Hx Other Anesthesia Reactions Yes: HARD TO WAKE UP Diagnosis left knee scope Onset 07/15/2021 Subjective Information s/p two days left knee Query Text:As Reported By Patient/ arthroscope. States that his Family knee is doing ok, with a 3-4/ 10 pain, but reports that his throat and stomach muscles are really sore thinking that it is from the intubation. States that the throat is worse than the knee right now. Started using a walker at home initially and started using a cane this afternoon at home and is using a cane today in clinic. Self Report Pain Assessment Left Knee(s) Reported Pain Level 4 Pain Description Aching,Incisional Pain Frequency Acute Lowest Pain Intensity 3 Greatest Pain Intensity 4 Pain Aggravating Factors Walking Pain Score Pain Score 4: Self Report Interventions Used Interventions Used By Clinicians Exercise,Ice Pain Relief Interventions Used By Exercise Patient Lower Extremity Range of Motion Knee Range of Motion Left Knee Flexion Range of Motion - Active 96 Knee Extension Range of Motion - Active 0 Query Text: Lower Extremity Muscle Strength Testing Knee Strength Left Knee Flexion Strength 4- Good - Knee Extension Strength 4- Good - Knee Strength Comments good quad contraction Extremity Circumference Assessment Circumference Assessment Location Left
--- NOTE | 2021-07-25 10:16 | PCPTNOTE ---
Patient called to cancel this date due to being sick.
--- NOTE | 2021-09-05 07:34 | PCPTNOTE ---
PHYSICAL THERAPY DISCHARGE Attending Provider: Alonso Martino MD Patient:Valentino Winn Date of :1960 Patient has not returned for any further treatments since 08/06/2021, therefore he will be discharged at this time. Patient?s initial visit was on 07/17/2021 attended 3 subsequent visits. Thank you for referring this patient to [facility]. Please review, sign, date and return this discharge summary JANNETTE. I have been updated about the patient's current status and I agree with discharge from the above service at this time. Referring Physician Date
== END 2021-09-05 15:24 | disposition home or self-care (01) ==
LOC: ANHPT 09:15
PROVIDERS: PCP Family Medicine; Visit Provider Orthopaedic Surgery
DX: Z48.89 Encounter for other specified surgical aftercare (principal); Z98.890 Other specified postprocedural states
CPT/HCPCS: 97110; 97140; 97162

== ENCOUNTER 2021-08-20 08:51 | Outpatient (RCR) | payer OTHER, SELFPAY ==
--- NOTE | 2021-08-20 11:54 | PTOPEVAL ---
Thank you for referring Valentino Winn to [facility].? The patient is scheduled to be seen for therapy 1x/week for 4 weeks. Please review, sign, date and return this plan of care JANNETTE. I agree with and certify that the following plan of care is medically necessary. 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 He will unemployed by the end of the month. He has a knee injury 12/16, torn meniscus left knee. Subjective Information He has increased dizziness Query Text:As Reported By Patient/ with turning especially to Family right side. He went to ED to r /o stroke or heart related impairments causing dizziness. Reports increased symptoms with lying on right side, head movement, turning, sitting up or standing up. Reports loss of balance with task. Reports difficulty with getting out of bed or turning in bed. Reports dizziness interferes with emergency management program specialist. Pain Assessment Timing of Pain Assessment Assessment Self Report Self Report Pain Level 0 Cervical and Lumbar ROM Cervical ROM Cervical Lateral Flexion Right (0-50) 30:Active in Degrees Cervical Lateral Flexion Left (0-50) 25:Active in Degrees Cervical Rotation Right (0-90) 60Active in Degrees Cervical Rotation Left (0-90) 50Active in Degrees Posture Posture Sitting Position Head/C-Spine Posture Forward Head Thoracic Spine Posture Increased Kyphosis Shoulder Posture (L) Rounded,(R) Rounded Scapula Posture (L) Protracted,(R) Protracted, (L) Depressed,(R) Depressed,(L ) Tipped,(R) Tipped Vestibular Evaluation Vestibular Medical Information Past Vestibular History Back Pain,Falls,Medication Changes,Sinus/Allergy Issues, Visual Issues Recent Symptoms Decrease Strength,Loss of Balance,Recent Medication Changes Hearing Changes None Symptoms Increase Bend Forward,Lie Down (sit to supine),Look Up,Looking Side to Side,Quick Head Turns,
--- NOTE | 2021-08-26 10:35 | PCPTNOTE ---
Pt cancelled his appt on 08/27/21 due to improved symptoms.
--- NOTE | 2021-09-17 10:10 | PCPTNOTE ---
Admitting Provider: Attending Provider: Rupal Mcintyre PA-C Patient:Valentino Winn Date of :1960 Physical Therapy Discharge Summary Patient has not returned for any further treatments since 08/20/2021 due to he cancelled his follow-up visits due to improved symptoms. Will Discharge therapy services at this time. The goals have been partially met. Thank you for referring this patient to [facility]. Please review, sign, date and return this discharge summary JANNETTE. I have been updated about the patient's current status and I agree with discharge from the above service at this time. Referring Physician Date
== END 2021-09-18 09:32 | disposition home or self-care (01) ==
LOC: ANHPT 08:51
PROVIDERS: PCP Family Medicine; Visit Provider Physician Assistant
DX: H81.10 Benign paroxysmal vertigo, unspecified ear (principal)
CPT/HCPCS: 97110; 97163

== ENCOUNTER → 2021-09-23 12:39 | Outpatient (CLI) | payer OTHER, SELFPAY ==
--- NOTE | ~2021-09-23 | XR_ITS ---
XR hand BI arthritis min 3V DATE: 09/23/2021 12:59 INDICATION: Bilateral hand pain. Arthritis. TECHNIQUE: 4 views of each hand. COMPARISON: None FINDINGS: Right hand: There is polyarticular osteoarthritis of the right hand including first carpometacarpal, first throug h third metacarpophalangeal joints in particular. There is mild osteoarthritis at the interphalangeal joints. No fracture or dislocation, periosteal reaction or bone destruction. No erosive change or chondrocalc inosis. Left hand: There is polyarticular osteoarthritis including first carpometacarpal and particularly the first meta carpophalangeal joints. There is mild osteoarthritis at the second and third metacarpophalangeal join ts and mild osteoarthritis at some of the interphalangeal joints. There is old healed fracture deformity of the midshaft of the fifth metacarpal bone. No recent fractu re or dislocation, periosteal reaction or bone destruction, erosive change or chondrocalcinosis is ev ident. IMPRESSION: Polyarticular osteoarthritis of the hands Reviewed, dictated and finalized at location A. UTER PROGRAMMER ANALYST
== END ==
PROVIDERS: PCP Family Medicine; Visit Provider Family Medicine
DX: R29.898 Other symptoms and signs involving the musculoskeletal system (principal); M19.041 Primary osteoarthritis, right hand; M19.042 Primary osteoarthritis, left hand
CPT/HCPCS: 73130

== ENCOUNTER 2021-12-26 12:35 | Outpatient (CLI) | payer BC, SELFPAY ==
--- NOTE | ~2021-12-26 | US_ITS ---
EXAMINATION: US venous doppler [facility] EXAM DATE: 12/26/2021 13:16 INDICATION: M79.605 - Pain in left leg TECHNIQUE: Multiple grayscale, color flow and Doppler images of the left lower extremity deep venous system obtained and reviewed. There is no prior study for comparison. FINDINGS: LEFT SIDE Common femoral: -------- Normal. Profunda femoral: ------- Normal. Femoral: Thrombosed. Popliteal: Thrombosed. Posterior tibial: --------- Normal. Peroneal: Not visualized. Gastrocnemius: Thrombosed. Soleus: Not visualized. Greater saphenous: ----- Normal. Lesser saphenous: ------ Not visualized. IMPRESSION: Positive for right femoral, popliteal, gastrocnemius DVT. STAT hold and call. I confirmed with Luiza that patient is in waiting room, and who is notifying ordering doctor of results. Patient will be given instructions at that time. Reviewed, dictated and finalized at location B. IMPRESSION: Positive for right femoral, popliteal, gastrocnemius DVT. STAT hold and call. I confirmed with Luiza that patient is in waiting room, and who is notifying ordering doctor of results. Patient will be given instruc tions at that time.
== END 2021-12-26 12:36 | disposition home or self-care (01) ==
PROVIDERS: PCP Family Medicine; Visit Provider Orthopaedic Surgery
DX: I82.412 Acute embolism and thrombosis of left femoral vein (principal); I82.432 Acute embolism and thrombosis of left popliteal vein; I82.462 Acute embolism and thrombosis of left calf muscular vein
CPT/HCPCS: 93971

== ENCOUNTER 2023-01-10 01:20 | Inpatient (IN) | payer BC, SELFPAY ==
[2023-01-10] VITALS (51 sets, daily range): BP systolic 112–166; BP diastolic 72–114; PULSE 80–122; RESP 16–32; TEMP 36.1–36.5; O2SAT 83–99; BMI 56.7
--- NOTE | ~2023-01-10 | CT_ITS ---
EXAMINATION: CTA chest PE protocol DATE: 01/10/2023 04:49 INDICATION: Shortness of breath TECHNIQUE: Computed tomography angiography (CTA) of the chest was performed with 100 mL Omnipaque-350 intravenous contrast timed to evaluate the pulmonary arteries. Coronal maximum intensity projection 3D-reconstructions were created by the technologist. The dose-length product (DLP) was 974.37 mGy-cm. Automated exposure control and iterative reconstruction technique were employed. COMPARISON: None. FINDINGS: The pulmonary arteries are well-opacified. No pulmonary embolism is identified. Respiratory motion artifact slightly limits sensitivity and subsegmental pulmonary arteries. There are minimal a irspace opacities of the lower lobes. There is mild bronchial wall thickening in the lower lobes. No pleural effusion or pneumothorax. The heart size is normal. There is mild bilateral hilar lymphadenop athy. There is mild thoracic spondylosis. IMPRESSION: 1. No pulmonary embolus identified, sensitivity slightly limited by respiratory motion. 2. Mild bronchial wall thickening with airspace opacities in the lower lobes, consistent with mild br onchopneumonia. Reviewed, dictated and finalized at location A. IMPRESSION: 1. No pulmonary embolus identified, sensitivity slightly limited by respiratory motion. 2. Mild bronchial wall thickening with airspace opacities in the lower lobes, c onsistent with mild bronchopneumonia.
--- NOTE | ~2023-01-10 | XR_ITS ---
EXAMINATION: XR chest 1V portable INDICATION: Shortness of breath TECHNIQUE: Portable AP chest at 0145 hours COMPARISON: 07/25/2021 FINDINGS: There are minimal airspace opacities of the lung bases. No pleural effusion or pneumothorax . The cardiomediastinal silhouette is normal. IMPRESSION: 1. Minimal bibasilar airspace opacities, consistent with atelectasis versus pneumonia. Reviewed, dictated and finalized at location A. IMPRESSION: 1. Minimal bibasilar airspace opacities, consistent with atelectasis versus pne umonia.
--- NOTE | ~2023-01-10 | XR_ITS ---
XR chest 2V DATE: 01/12/2023 10:05 INDICATION: Pneumonia. Shortness of breath. TECHNIQUE: PA and lateral views COMPARISON: January 10, 2023 CTA chest FINDINGS: Mild right diaphragmatic eventration. There is mild infiltrate or atelectasis at both lung bases. The lungs otherwise appear clear. Normal heart size. No pleural effusion or pulmonary vascular congestion or pneumothorax. IMPRESSION: Mild bibasilar infiltrate and/atelectasis Reviewed, dictated and finalized at location B.
--- NOTE | 2023-01-10 01:23 | PC.NURSE ---
Patient's oxygen saturations noted to be 83% on room air upon arrival to triage, patient placed on 6L oxygen via nasal cannula and oxygen saturations increased to 92%. CRISTHIAN Vu charge nurse notified of patient arrival and emergent need for room.
--- NOTE | 2023-01-10 01:35 | ECG_ITS ---
Measurements Intervals [place] Rate: 119 P: 51 [place]: 202 QRS: -50 QRSD: 85 T: 79 QT: 304 QTc: 429 Interpretive Statements SINUS TACHYCARDIA LEFT ANTERIOR FASCICULAR BLOCK [QRS AXIS <= -45, QR IN I, RS IN II] NONSPECIFIC T-WAVE ABNORMALITY COMPARED TO ECG 07/25/2021 18:44:38 SINUS TACHYCARDIA NOW PRESENT LEFT ANTERIOR FASCICULAR BLOCK NOW PRESENT T-WAVE ABNORMALITY NOW PRESENT Electronically Signed On 01-10-2023 22:12:35 CDT by Herlinda Darden M.D.
[2023-01-10] MEDS: methylPREDNISolone SOD SUCC 125 MG VIAL IV PUSH ×2 (01:48→05:39)
[2023-01-10 02:20] LABS: Basophils Absolute Auto 0.1 K/mm3 (0.0-0.1); Basophils Percent Auto 0.6 % (0.2-1.2); Eosinophils Absolute Auto 0.7 K/mm3 (0-0.3); Eosinophils Percent Auto 5.8 % (0-4.4); Hematocrit 47.3 % (42.0-52.0); Hemoglobin 15.2 g/dL (14.0-18.0); Immature Granulocyte Absolute 0.07 K/mm3 (0.00-0.031); Immature Granulocyte Percent A 0.6 % (0-0.5); Lymphocytes Absolute Auto 1.28 K/mm3 (0.9-3.2); Lymphocytes Percent Auto 10.2 % (18.3-44.2); Mean Corpuscular HGB Conc 32.1 g/dl (32-36); Mean Corpuscular Hemoglobin 27.5 pg (26-34); Mean Corpuscular Volume 85.5 fl (80-100); Monocytes Absolute Auto 0.9 K/mm3 (0.1-0.6); Monocytes Percent Auto 7.4 % (2.6-8.5); Neutrophils Absolute Auto 9.4 K/mm3 (1.3-6.7); Neutrophils Percent Auto 75.4 % (45.5-73.1); Platelet Count Result 339 k/mm3 (150-375); Red Blood Count 5.53 M/mm3 (4.6-6.20); Red Cell Distribution Width 14.2 % (11.5-14.5); White Blood Count 12.5 K/mm3 (4.5-10.0)
[2023-01-10 02:28] LABS: INR 1.8; Prothrombin Time 20.4 Seconds (11.1-14.7)
[2023-01-10 02:29] LABS: Partial Thromboplastin Time 39.6 SECONDS (22.3-36.8)
[2023-01-10 02:29] LABS: Alanine Aminotransferase 39 U/L (6-50); Albumin Level 4.6 g/dL (3.5-5.1); Alkaline Phosphatase 99 U/L (38-126); Anion Gap 10 mmol/L (8-16); Aspartate Amino Transferase 41 U/L (17-59); Bilirubin,Total 1.1 mg/dL (0.2-1.3); Blood Urea Nitrogen 27 mg/dL (9-20); Calcium 9.4 mg/dL (8.4-10.2); Carbon Dioxide 26 mmol/L (22-30); Chloride 101 mmol/L (98-107); Estimated CRCL calculation 81 ml/min; Estimated Glomerular Filt Rate > 60; Glucose 138 mg/dL (65-110); Potassium 4.1 mmol/L (3.4-5.0); Sodium 137 mmol/L (137-145)
[2023-01-10] MEDS: IPRATROPIUM BR 0.02% INH SOLN 0.5 MG/2.5 ML VIAL 1.5 MG INHALATION (02:29)
[2023-01-10] MEDS: LEVALBUTEROL NEB 1.25 MG/3 ML 3.75 MG INHALATION (02:30)
[2023-01-10 02:40] LABS: NT Pro B Type Natriuretic Pept 47 pg/mL (19.9-100); Troponin I < 0.012 ng/mL (0.000-0.034)
[2023-01-10 02:54] LABS: Influenza A QL RT-PCR Negative (Negative); Influenza B QL RT-PCR Negative (Negative); RSV RNA, RT-PCR Negative (Negative); SARS-CoV-2 RNA PCR Negative
[2023-01-10 03:03] LABS: Procalcitonin 0.1 ng/mL
--- NOTE | 2023-01-10 05:27 | ED.GENADULT ---
HPI - General Adult General Chief complaint: Shortness of Breath/Dyspnea Stated complaint: sob Time Seen by Provider: 01/10/23 01:32 History of Present Illness HPI narrative: Patient 62-year-old gentleman who presents the emergency department with chief complaint of shortness of breath. Patient reports that he was recently diagnosed with bronchitis started on Zithromax and reports that this evening he started getting very short of breath. EMS was called and the patient was found to be hypoxic and was started on nasal cannula oxygen as well as receiving a breathing treatment. 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 Related Data Home Medications Medication Instructions Recorded Confirmed multivitamin 1 tablet PO DAILY 11/09/19 12/26/21 cinnamon bark 500 mg capsule 1,000 mg PO DAILY 10/03/20 12/26/21 (Cinnamon) cyanocobalamin (vitamin B-12) 2,500 mcg PO DAILY 10/03/20 12/26/21 2,500 mcg tablet levocetirizine 5 mg tablet (Xyzal) 5 mg PO DAILY 12/12/22 Allergies Allergy/AdvReac Type Severity Reaction Status Date / Time Penicillins Allergy Unknown Rash Verified 01/10/23 01:20 amlodipine AdvReac Intermediate feet Verified 01/10/23 01:20 swelling Review of Systems Review of Systems: A 10 system review of systems was completed on the patient and is negative except for what is stated in the HPI. Nursing and ancillary documentation was reviewed. [facility] Past Medical History Medical History Arthritis of carpometacarpal (CMC) joint of both thumbs HTN (hypertension), benign Morbid obesity with BMI of 50.0-59.9, adult Osteoarthritis of left knee Rotator cuff dysfunction (~2017) Sexual dysfunction Sleep disorder Tear of medial meniscus of left knee Surgical History Surgical History H/O eye surgery H/O hernia repair (~1987) History of arthroscopy of left knee Partial medial meniscectomy July 15, 2021 Family History Family History Grandparent Diabetes mellitus Social History Social History Years smoked: 10 Smoking status: Former smoker Tobacco type: cigarettes Smoking end date: 07/29/85 Alcohol intake: current Drinks per week: 1 Substance use: never Substance use type: does not use Lack of Transportation: No Lack of Food: Never True Current Housing: I Have Housing Concerned About Future Housing: No Difficulty Paying Gas/Electric Bills: No Difficulty Paying for Meds: No Currently Unemployed: No Education: High School Diploma/GED Difficulty w/ Childcare or Family Care: No Living arrangements: with family Occupation/Education: retired Gender identity (if verbalized by the patient): Male Spiritual care concerns: No Exam Narrative: GENERAL: Well-appearing, well-nourished, and in no acute distress. HEAD: Normocephalic, atraumatic. EYES: PERRLA and EOMI. ENT: Nares clear, no rhinorrhea or epistaxis. Mucous membranes moist. NECK: Supple. CHEST: Clear to auscultation. No respiratory distress. HEART: Regular rate and rhythm. No murmur heard. Normal peripheral pulses. ABDOMEN: Soft, nontender, nondistended, normal active bowel sounds. EXTREMITIES: Normal range of motion. No edema. SKIN: Warm, dry, no rash. NEURO: No focal deficits. Alert and oriented x3. PSYCH: Normal mood and affect. Course Vital Signs Vital signs: Vital Signs Temperature 36.5 C 01/10/23 01:31 Pulse Rate 121 H 01/10/23 01:31 Respiratory Rate 28 H 01/10/23 01:31 Blood Pressure 166/114 H 01/10/23 01:31 Pulse Oximetry 83 L 01/10/23 01:31 Oxygen Delivery Room Air 01/10/23 01:31 Temperature 36.5 C 01/10/23 01:31 Pulse Rate 99
[2023-01-10 05:49] LABS: Troponin I < 0.012 ng/mL (0.000-0.034)
--- NOTE | 2023-01-10 06:54 | ADMGEN ---
This patient, Valentino Winn, was admitted to IMU Room 207-01 on 01/10/23 at 0652. Patient/family oriented to hospital policies and general routines including ID bracelet, bed and alarms, visiting hours, pain management, procedures, bathroom and other care routines, personal items, smoking policy, room service/diet, and visiting hours. Information on how to activate the Rapid Response Team has been discussed. Patient/Family are encouraged to report perceived risks to care and to ask questions if they do not understand what they are told or what they should do.
[2023-01-10 08:46] LABS: Troponin I < 0.012 ng/mL (0.000-0.034)
[2023-01-10] MEDS: IPRATROPIUM BR 0.02% INH SOLN 0.5 MG/2.5 ML VIAL INHALATION ×3 (09:25→21:28)
[2023-01-10] MEDS: LEVALBUTEROL NEB 1.25 MG/3 ML 0.63 MG INHALATION ×3 (09:25→21:28)
[2023-01-10] MEDS: CYANOCOBALAMIN 500 MCG TABLET PO (10:30)
[2023-01-10] MEDS: guaiFENesin 600 MG/DEXTROMETHORPHAN 30 MG SR TAB 12 HR 1 TAB PO ×2 (10:31→20:06)
[2023-01-10] MEDS: IRBESARTAN 150 MG TABLET 300 MG PO (10:31)
[2023-01-10] MEDS: SPIRONOLACTONE 50 MG TABLET PO (10:31)
[2023-01-10] MEDS: MULTIVITAMINS THERAPEUTIC TAB (*BKC) 1 TABLET PO (10:31)
[2023-01-10] MEDS: FUROSEMIDE INJ 40 MG/4 ML VIAL 20 MG IV PUSH (11:02)
--- NOTE | 2023-01-10 13:19 | PM.IMHP ---
H&P: HPI History of Present Illness Date/Time: 01/10/23 13:19 Chief Complaint: Shortness of breath Narrative: ED-HPI narrative: Patient 62-year-old gentleman who presents the emergency department with chief complaint of shortness of breath.? Patient reports that he was recently diagnosed with bronchitis started on Zithromax and reports that this evening he started getting very short of breath.? EMS was called and the patient was found to be hypoxic and was started on nasal cannula oxygen as well as receiving a breathing treatment.? 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 Patient is being treated with methylprednisone, bronchodilator, ceftriaxone, and azithromycin, patient lung sounds congested will add low-dose Lasix, will continue to monitor will have a PT OT evaluate the patient and further recommendation to follow. Patient is admitted as inpatient with pneumonia will stay in the hospital 2 midnights. Review of Systems Review of Systems: A 10 system review of systems was completed on the patient and is negative except for what is stated in the HPI. Nursing and ancillary documentation was reviewed. REPLACED BY [facility] Past Medical History Medical History Arthritis of carpometacarpal (CMC) joint of both thumbs HTN (hypertension), benign Morbid obesity with BMI of 50.0-59.9, adult Osteoarthritis of left knee Rotator cuff dysfunction (~2017) Sexual dysfunction Sleep disorder Tear of medial meniscus of left knee Surgical History Surgical History H/O eye surgery H/O hernia repair (~1987) History of arthroscopy of left knee Partial medial meniscectomy July 15, 2021 Family History Family History Grandparent Diabetes mellitus Mother Hypertension Chronic obstructive pulmonary disease Social History Social History Years smoked: 10 Smoking status: Former smoker Tobacco type: cigarettes Second hand tobacco smoke exposure: No Smoking end date: 07/29/85 Alcohol intake: current Drinks per week: 1 Substance use: never Substance use type: does not use Lack of Transportation: No Lack of Food: Never True Current Housing: I Have Housing Concerned About Future Housing: No Difficulty Paying Gas/Electric Bills: No Difficulty Paying for Meds: No Currently Unemployed: No Education: High School Diploma/GED Difficulty w/ Childcare or Family Care: No Living arrangements: with family Occupation/Education: retired Gender identity (if verbalized by the patient): Male Spiritual care concerns: Yes (Pt does not eat pork or shellfish.) Meds Home Medications and Allergies Home Medications Medication Instructions Recorded Confirmed Type multivitamin 1 tablet PO DAILY 11/09/19 01/10/23 History cinnamon bark 500 mg capsule 1,000 mg PO DAILY 10/03/20 01/10/23 History (Cinnamon) spironolactone 50 mg tablet 50 mg PO QAM #90 tabs 08/15/22 01/10/23 Rx irbesartan 300 mg tablet 300 mg PO DAILY #90 tabs 09/30/22 01/10/23 Rx rivaroxaban 20 mg tablet (Xarelto) 20 mg PO DAILY #90 tabs 09/30/22 01/10/23 Rx levocetirizine 5 mg tablet (Xyzal) 5 mg PO DAILY PRN Itching 12/12/22 01/10/23 History albuterol sulfate 90 mcg/actuation 1 puff inhalation Q4H PRN 01/05/23 01/10/23 Rx aerosol inhaler shortness of breath or wheezing #8.5 grams benzonatate 100 mg capsule 100 mg PO TID PRN cough #30 caps 01/05/23 01/10/23 Rx azithromycin 250 mg tablet See Rx Instructions PO .COMPLEX #6 01/09/
[2023-01-10] MEDS: RIVAROXABAN 20 MG TABLET PO (16:59)
[2023-01-10] MEDS: methylPREDNISolone SOD SUCC 125 MG VIAL 60 MG IV PUSH ×2 (16:59→21:23)
[2023-01-11] VITALS (23 sets, daily range): BP systolic 110–134; BP diastolic 57–83; PULSE 67–104; RESP 20–22; TEMP 36.1–36.6; O2SAT 92–97
[2023-01-11] MEDS: LEVALBUTEROL NEB 1.25 MG/3 ML 0.63 MG INHALATION ×4 (02:50→21:30)
[2023-01-11] MEDS: IPRATROPIUM BR 0.02% INH SOLN 0.5 MG/2.5 ML VIAL INHALATION ×4 (02:50→21:30)
[2023-01-11 05:14] LABS: Hematocrit 42.7 % (42.0-52.0); Hemoglobin 13.4 g/dL (14.0-18.0); Mean Corpuscular HGB Conc 31.4 g/dl (32-36); Mean Corpuscular Hemoglobin 27.1 pg (26-34); Mean Corpuscular Volume 86.4 fl (80-100); Mean Platelet Volume 9.9 fl (7.4-10.4); Platelet Count Result 302 k/mm3 (150-375); Red Blood Count 4.94 M/mm3 (4.6-6.20); Red Cell Distribution Width 14.4 % (11.5-14.5)
[2023-01-11 05:34] LABS: Anion Gap 4 mmol/L (8-16); Blood Urea Nitrogen 44 mg/dL (9-20); Calcium 9.1 mg/dL (8.4-10.2); Carbon Dioxide 30 mmol/L (22-30); Chloride 102 mmol/L (98-107); Estimated CRCL calculation 83 ml/min; Estimated Glomerular Filt Rate 56; Glucose 147 mg/dL (65-110); Magnesium 2.2 mg/dL (1.6-2.3); Potassium 4.8 mmol/L (3.4-5.0); Sodium 136 mmol/L (137-145)
[2023-01-11] MEDS: methylPREDNISolone SOD SUCC 125 MG VIAL 60 MG IV PUSH ×3 (06:21→21:20)
[2023-01-11] MEDS: guaiFENesin 600 MG/DEXTROMETHORPHAN 30 MG SR TAB 12 HR 1 TAB PO ×2 (09:29→21:20)
[2023-01-11] MEDS: CYANOCOBALAMIN 500 MCG TABLET PO (09:29)
[2023-01-11] MEDS: MULTIVITAMINS THERAPEUTIC TAB (*BKC) 1 TABLET PO (09:29)
[2023-01-11] MEDS: IRBESARTAN 150 MG TABLET 300 MG PO (09:29)
[2023-01-11] MEDS: SPIRONOLACTONE 50 MG TABLET PO (09:29)
--- NOTE | 2023-01-11 12:26 | PM.IMPN ---
Progress Note: A&P Assessment and Plan (1) Acute respiratory failure with hypoxia: Code(s): J96.01 - Acute respiratory failure with hypoxia Status: Acute Assessment and Plan: ED-HPI narrative: Patient 62-year-old gentleman who presents the emergency department with chief complaint of shortness of breath.? Patient reports that he was recently diagnosed with bronchitis started on Zithromax and reports that this evening he started getting very short of breath.? EMS was called and the patient was found to be hypoxic and was started on nasal cannula oxygen as well as receiving a breathing treatment.? 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 Patient is being treated with methylprednisone, bronchodilator, ceftriaxone, and azithromycin, on 01/11 patient lung sounded congested added low-dose Lasix, today his lung more wheezing, and his BUN/Creatinine is rising, will stop lasix and CPM will continue to monitor will have a PT OT evaluate the patient and further recommendation to follow. (2) HTN (hypertension), benign: Code(s): I10 - Essential (primary) hypertension Status: Acute Assessment and Plan: Will continue home regimen and monitor (3) Morbid obesity with BMI of 50.0-59.9, adult: Code(s): E66.01 - Morbid (severe) obesity due to excess calories; Z68.43 - Body mass index [BMI] 50.0-59.9, adult Status: Acute Assessment and Plan: Will have a dietitian evaluate the patient as well as PT OT Subjective Date/time seen: 01/11/23 12:26 ED-HPI narrative: Patient 62-year-old gentleman who presents the emergency department with chief complaint of shortness of breath.? Patient reports that he was recently diagnosed with bronchitis started on Zithromax and reports that this evening he started getting very short of breath.? EMS was called and the patient was found to be hypoxic and was started on nasal cannula oxygen as well as receiving a breathing treatment.? 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 Patient is being treated with methylprednisone, bronchodilator, ceftriaxone, and azithromycin, on 01/11 patient lung sounded congested added low-dose Lasix, today his lung more wheezing, and his BUN/Creatinine is rising, will stop lasix and CPM will continue to monitor will have a PT OT evaluate the patient and further recommendation to follow. Exam Narrative: Morbidly obese Patient is comfortable, NAD HEENT: eyes are clear and none icteric LUNGS: Bilateral fair entry with harsh breath sounds and rales and rhonchi HEART: RR S1S2 ABD: BS+, Soft and nontender Lower extremities: no edema SKIN: nonjaundiced Neuro: grossly intact. Objective Data Vital Signs Vital Signs: Vital Signs - 24 hr 01/10/23 14:12 01/10/23 14:13 01/10/23 14:00 Temperature Pulse Rate 88 88 90 Respiratory Rate 20 20 Blood Pressure Pulse Oximetry 94 Oxygen Delivery BiPAP Oxygen Flow Rate Fraction of Inspired Oxygen 01/10/23 14:26 01/10/23 16:00 01/10/23 16:00 Temperature 97.0 F L Pulse Rate 86 82 85 Respiratory Rate 20 22 H Blood Pressure 116/72 Pulse Oximetry 96 Oxygen Delivery Oxygen Flow Rate Fraction of Inspired Oxygen 01/10/23 16:42 01/10/23 16:45 01/10/23 17:55 Temperature Pulse Rate 91 92 Respiratory Rate 19 Blood Pressure Pulse Oximetry 9
[2023-01-11] MEDS: RIVAROXABAN 20 MG TABLET PO (16:44)
[2023-01-11] MEDS: SALINE LOCK FLUSH 10 ML IV PUSH (21:20)
[2023-01-12] VITALS (25 sets, daily range): BP systolic 112–143; BP diastolic 61–103; PULSE 62–132; RESP 18–20; TEMP 36.1–36.6; O2SAT 91–97
[2023-01-12] MEDS: IPRATROPIUM BR 0.02% INH SOLN 0.5 MG/2.5 ML VIAL INHALATION ×4 (01:47→20:33)
[2023-01-12] MEDS: LEVALBUTEROL NEB 1.25 MG/3 ML 0.63 MG INHALATION ×4 (01:47→20:33)
[2023-01-12] MEDS: SALINE LOCK FLUSH 10 ML IV PUSH ×4 (04:32→21:02)
[2023-01-12] MEDS: methylPREDNISolone SOD SUCC 125 MG VIAL 60 MG IV PUSH ×3 (04:36→21:02)
[2023-01-12 04:38] LABS: Hematocrit 42.1 % (42.0-52.0); Hemoglobin 13.3 g/dL (14.0-18.0); Mean Corpuscular HGB Conc 31.6 g/dl (32-36); Mean Corpuscular Hemoglobin 27.1 pg (26-34); Mean Corpuscular Volume 85.9 fl (80-100); Mean Platelet Volume 9.7 fl (7.4-10.4); Platelet Count Result 314 k/mm3 (150-375); Red Cell Distribution Width 14.5 % (11.5-14.5); White Blood Count 13.5 K/mm3 (4.5-10.0)
[2023-01-12 05:00] LABS: Anion Gap 10 mmol/L (8-16); Blood Urea Nitrogen 60 mg/dL (9-20); Calcium 8.9 mg/dL (8.4-10.2); Carbon Dioxide 27 mmol/L (22-30); Chloride 100 mmol/L (98-107); Estimated CRCL calculation 78 ml/min; Estimated Glomerular Filt Rate 51; Glucose 139 mg/dL (65-110); Magnesium 2.3 mg/dL (1.6-2.3); Potassium 4.1 mmol/L (3.4-5.0); Sodium 137 mmol/L (137-145)
[2023-01-12] MEDS: MULTIVITAMINS THERAPEUTIC TAB (*BKC) 1 TABLET PO (09:23)
[2023-01-12] MEDS: SPIRONOLACTONE 50 MG TABLET PO (09:23)
[2023-01-12] MEDS: guaiFENesin 600 MG/DEXTROMETHORPHAN 30 MG SR TAB 12 HR 1 TAB PO ×2 (09:23→21:02)
[2023-01-12] MEDS: IRBESARTAN 150 MG TABLET 300 MG PO (09:23)
[2023-01-12] MEDS: CYANOCOBALAMIN 500 MCG TABLET PO (09:24)
--- NOTE | 2023-01-12 10:52 | PM.IMPN ---
Progress Note: A&P Assessment and Plan (1) Acute respiratory failure with hypoxia: Code(s): J96.01 - Acute respiratory failure with hypoxia Status: Acute Assessment and Plan: ED-HPI narrative: Patient 62-year-old gentleman who presents the emergency department with chief complaint of shortness of breath.? Patient reports that he was recently diagnosed with bronchitis started on Zithromax and reports that this evening he started getting very short of breath.? EMS was called and the patient was found to be hypoxic and was started on nasal cannula oxygen as well as receiving a breathing treatment.? 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 Patient is being treated with methylprednisone, bronchodilator, ceftriaxone, and azithromycin, on 01/11 patient lung sounded congested added low-dose Lasix, on 01/11 his lung more wheezing, and his BUN/Creatinine is rising, will stop lasix and CPM, today patient states feeling much better is requiring less oxygen 2 L compared to 4 L yesterday, repeat chest x-ray shows improvement in infiltrates, patient states he does have a CPAP at home will was not able to use it because he was too much pressure, patient's family will bring his CPAP machine and will adjust so we can use it in the night, patient's symptoms are improving will taper his Solu-Medrol to prednisone today, will continue to monitor will have a PT OT evaluate the patient and further recommendation to follow. (2) HTN (hypertension), benign: Code(s): I10 - Essential (primary) hypertension Status: Acute Assessment and Plan: Will continue home regimen and monitor (3) Morbid obesity with BMI of 50.0-59.9, adult: Code(s): E66.01 - Morbid (severe) obesity due to excess calories; Z68.43 - Body mass index [BMI] 50.0-59.9, adult Status: Acute Assessment and Plan: Will have a dietitian evaluate the patient as well as PT OT Subjective Date/time seen: 01/12/23 10:52 ED-HPI narrative: Patient 62-year-old gentleman who presents the emergency department with chief complaint of shortness of breath.? Patient reports that he was recently diagnosed with bronchitis started on Zithromax and reports that this evening he started getting very short of breath.? EMS was called and the patient was found to be hypoxic and was started on nasal cannula oxygen as well as receiving a breathing treatment.? 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 Patient is being treated with methylprednisone, bronchodilator, ceftriaxone, and azithromycin, on 01/11 patient lung sounded congested added low-dose Lasix, on 01/11 his lung more wheezing, and his BUN/Creatinine is rising, will stop lasix and CPM, today patient states feeling much better is requiring less oxygen 2 L compared to 4 L yesterday, repeat chest x-ray shows improvement in infiltrates, patient states he does have a CPAP at home will was not able to use it because he was too much pressure, patient's family will bring his CPAP machine and will adjust so we can use it in the night, patient's symptoms are improving will taper his Solu-Medrol to prednisone today, will continue to monitor will have a PT OT evaluate the patient and further recommendation to follow. Exam Narrative: Morbidly obese Patient is comfortable, NAD HEENT: eyes are clear and none icteric LUNGS: Bilater
[2023-01-12] MEDS: ACETAMINOPHEN 325 MG TABLET 650 MG PO (15:34)
[2023-01-12] MEDS: RIVAROXABAN 20 MG TABLET PO (17:08)
[2023-01-13] VITALS (22 sets, daily range): BP systolic 106–136; BP diastolic 53–77; PULSE 48–109; RESP 18–24; TEMP 35.8–36.6; O2SAT 87–100
--- NOTE | 2023-01-13 02:29 | PCRCNOTE ---
pt using home bipap machine. Had to add a 4L oxygen bleed in due to pt desatting into the 80's. Pt doing well with the o2 bleed in
[2023-01-13] MEDS: methylPREDNISolone SOD SUCC 125 MG VIAL 60 MG IV PUSH (05:28)
[2023-01-13] MEDS: SALINE LOCK FLUSH 10 ML IV PUSH ×3 (05:29→21:19)
[2023-01-13 05:32] LABS: Hematocrit 44.5 % (42.0-52.0); Hemoglobin 14.2 g/dL (14.0-18.0); Mean Corpuscular HGB Conc 31.9 g/dl (32-36); Mean Corpuscular Hemoglobin 26.7 pg (26-34); Mean Corpuscular Volume 83.6 fl (80-100); Mean Platelet Volume 9.8 fl (7.4-10.4); Platelet Count Result 312 k/mm3 (150-375); Red Blood Count 5.32 M/mm3 (4.6-6.20); Red Cell Distribution Width 14.1 % (11.5-14.5)
[2023-01-13 05:42] LABS: Anion Gap 10 mmol/L (8-16); Blood Urea Nitrogen 47 mg/dL (9-20); Calcium 9.2 mg/dL (8.4-10.2); Carbon Dioxide 26 mmol/L (22-30); Chloride 102 mmol/L (98-107); Estimated CRCL calculation 98 ml/min; Estimated Glomerular Filt Rate > 60; Glucose 135 mg/dL (65-110); Magnesium 2.6 mg/dL (1.6-2.3); Potassium 4.5 mmol/L (3.4-5.0); Sodium 138 mmol/L (137-145)
[2023-01-13] MEDS: LEVALBUTEROL NEB 1.25 MG/3 ML 0.63 MG INHALATION ×3 (08:41→19:44)
[2023-01-13] MEDS: IPRATROPIUM BR 0.02% INH SOLN 0.5 MG/2.5 ML VIAL INHALATION ×3 (08:41→19:44)
[2023-01-13 08:54] LABS: Alveolar/Arterial O2 Gradient 62.9 mmHg; Base Excess ABG -0.8 mEq/l (+/-2.0); HCO3 ABG 25.8 mEq/l (22.0-26.0); Oxygen Content ABG 20.6 %vol (16.0-22.0); Oxygen Saturation ABG 96.5 % (95.0-100.0); Oxyhemoglobin 94.7 % THb (90.0-100.0); PCO2 ABG 49.7 mmHg (35.0-45.0); PO2 ABG 92.6 mmHg (80.0-100.0); PO2 FiO2 Ratio Arterial Blood 3.09 %; Total Hemoglobin 15.4 g/dL (12.0-18.0); pH ABG 7.333 (7.350-7.450)
[2023-01-13 08:57] LABS: Device NON-INVASIVE VENT; Fractional Inspired Oxygen 30 %; Non-Invasive Expiratory Pressure 6 CMH2O; Non-Invasive Inspiratory Pressure 16 CMH2O; Non-Invasive Vent Rate 16 /MIN
[2023-01-13] MEDS: guaiFENesin 600 MG/DEXTROMETHORPHAN 30 MG SR TAB 12 HR 1 TAB PO ×2 (09:14→21:19)
[2023-01-13] MEDS: CYANOCOBALAMIN 500 MCG TABLET PO (09:14)
[2023-01-13] MEDS: MULTIVITAMINS THERAPEUTIC TAB (*BKC) 1 TABLET PO (09:14)
[2023-01-13] MEDS: SPIRONOLACTONE 50 MG TABLET PO (09:14)
[2023-01-13] MEDS: IRBESARTAN 150 MG TABLET 300 MG PO (09:15)
--- NOTE | 2023-01-13 11:45 | PM.IMPN ---
Progress Note: A&P Assessment and Plan (1) Acute respiratory failure with hypoxia: Code(s): J96.01 - Acute respiratory failure with hypoxia Status: Acute Assessment and Plan: ED-[facility] narrative: Patient 62-year-old gentleman who presents the emergency department with chief complaint of shortness of breath.? Patient reports that he was recently diagnosed with bronchitis started on Zithromax and reports that this evening he started getting very short of breath.? EMS was called and the patient was found to be hypoxic and was started on nasal cannula oxygen as well as receiving a breathing treatment.? 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 Patient is being treated with methylprednisone, bronchodilator, ceftriaxone, and azithromycin, on 01/11 patient lung sounded congested added low-dose Lasix, on 01/11 his lung more wheezing, and his BUN/Creatinine is rising, will stop lasix and CPM, 01/12 patient states feeling much better is requiring less oxygen 2 L compared to 4 L repeat chest x-ray on 01/11 showed improvement in infiltrates, patient states he does have a CPAP at home was not able to use it because, it has too much pressure, patient's family brought his CPAP machine and hospital setting were used last night, he was requiring oxygen, and will need oxygen tubing to his mask, for that patient will need apnea link tonigt, will monitor, patient's symptoms are improving will taper his Solu-Medrol to prednisone today, will continue to monitor will have a PT OT evaluate the patient and further recommendation to follow. (2) HTN (hypertension), benign: Code(s): I10 - Essential (primary) hypertension Status: Acute Assessment and Plan: Will continue home regimen and monitor (3) Morbid obesity with BMI of 50.0-59.9, adult: Code(s): E66.01 - Morbid (severe) obesity due to excess calories; Z68.43 - Body mass index [BMI] 50.0-59.9, adult Status: Acute Assessment and Plan: Will have a dietitian evaluate the patient as well as PT OT Subjective Date/time seen: 01/13/23 11:45 ED-HPI narrative: Patient 62-year-old gentleman who presents the emergency department with chief complaint of shortness of breath.? Patient reports that he was recently diagnosed with bronchitis started on Zithromax and reports that this evening he started getting very short of breath.? EMS was called and the patient was found to be hypoxic and was started on nasal cannula oxygen as well as receiving a breathing treatment.? 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 Patient is being treated with methylprednisone, bronchodilator, ceftriaxone, and azithromycin, on 01/11 patient lung sounded congested added low-dose Lasix, on 01/11 his lung more wheezing, and his BUN/Creatinine is rising, will stop lasix and CPM, 01/12 patient states feeling much better is requiring less oxygen 2 L compared to 4 L repeat chest x-ray on 01/11 showed improvement in infiltrates, patient states he does have a CPAP at home was not able to use it because, it has too much pressure, patient's family brought his CPAP machine and hospital setting were used last night, he was requiring oxygen, and will need oxygen tubing to his mask, for that patient will need apnea link tonigt, will monitor, patient's symptoms are improving will taper his Solu-Medrol to prednisone today,
--- NOTE | 2023-01-13 11:46 | ADMGEN ---
This patient, Valentino Winn, was admitted to 2 Medical Room 259-01. Patient/family oriented to hospital policies and general routines including ID bracelet, bed and alarms, visiting hours, pain management, procedures, bathroom and other care routines, personal items, smoking policy, room service/diet, and visiting hours. Information on how to activate the Rapid Response Team has been discussed. Patient/Family are encouraged to report perceived risks to care and to ask questions if they do not understand what they are told or what they should do.
--- NOTE | 2023-01-13 14:27 | PC.NURSE ---
This patient, Valentino Winn, was transferred to [address] [place] [address] on 01/13/23 at 1133 . Personal belongings sent with patient. Report given to CRISTHIAN Baltazar. Appropriate documentation sent with patient.
--- NOTE | 2023-01-13 15:43 | HOMEO2EVAL ---
Evaluation was performed at [facility] Home Oxygen Evaluation RC: Home Oxygen (O2) Evaluation Start: 01/13/23 09:31 Freq: ONCE Status: Active Protocol: RPE Activity Type Activity Date Activity User E-sign Co-sign Detail Recorded Client Recorded Date Recorded By Document 01/13/23 14:30 MICHAEL [email or web address] 01/13/23 15:42 MICHAEL Document 01/13/23 14:35 MICHAEL [email or web address] 01/13/23 15:42 MICHAEL Document 01/13/23 14:38 MICHAEL [email or web address] 01/13/23 15:42 MICHAEL Document 01/13/23 14:40 MICHAEL [email or web address] 01/13/23 15:42 MICHAEL Document 01/13/23 14:45 MICHAEL [email or web address] 01/13/23 15:42 MICHAEL 01/13/23 01/13/23 01/13/23 14:30 14:35 14:38 Home O2 Evaluation [Oxygen] -Test Phase Resting Exercise Exercise -Oxygen Delivery Room Air Room Air Nasal Cannula -Oxygen Flow Rate (L/min) 1 [Pulse Oximetry] -Pulse Oximetry (90-100 %) 92 87 L 87 L [Pulse Rate] -Pulse Rate (60-100 beats/min) 90 109 H [Comments] -Home Oxygen Evaluation Comments [Charges] -Treatment Charges O2 Evaluation - Inpatient 01/13/23 01/13/23 14:40 14:45 Home O2 Evaluation [Oxygen] -Test Phase Exercise Resting -Oxygen Delivery Nasal Cannula Room Air -Oxygen Flow Rate (L/min) 2 [Pulse Oximetry] -Pulse Oximetry (90-100 %) 92 93 [Pulse Rate] -Pulse Rate (60-100 beats/min) 93 [Comments] -Home Oxygen Evaluation Comments PT REQUIRES 2 L WITH ACTIVITY [Charges] -Treatment Charges
--- NOTE | 2023-01-13 15:43 | PCRCNOTE ---
PT HAS [facility] BIPAP AND WILL NOW NEED HOME O2. 2L WITH ACTIVITY. HOME O2 EVAL DONE, WILL NEED ORDER, SET UP WITH [facility] FOR TRANSPORT HOME. AWAITING [facility] LINK TONIGHT TO SEE WHAT O2 NEEDS ARE WITH BIPAP.
[2023-01-13] MEDS: RIVAROXABAN 20 MG TABLET PO (18:17)
[2023-01-14 01:40] VITALS: PULSE 85; RESP 20; O2SAT 94; O2SAT 95
[2023-01-14 05:55] VITALS: BP 112/69; PULSE 79; RESP 20; TEMP 35.9; O2SAT 57
[2023-01-14] MEDS: WATER FOR IRRIGATION, STERILE 1,000 ML BOTTLE 1000 ML (06:00)
[2023-01-14] MEDS: SALINE LOCK FLUSH 10 ML IV PUSH (06:00)
[2023-01-14 06:46] LABS: Hematocrit 45.8 % (42.0-52.0); Hemoglobin 14.4 g/dL (14.0-18.0); Mean Corpuscular HGB Conc 31.4 g/dl (32-36); Mean Corpuscular Hemoglobin 26.9 pg (26-34); Mean Corpuscular Volume 85.6 fl (80-100); Mean Platelet Volume 9.7 fl (7.4-10.4); Platelet Count Result 290 k/mm3 (150-375); Red Blood Count 5.35 M/mm3 (4.6-6.20); Red Cell Distribution Width 14.4 % (11.5-14.5); White Blood Count 10.4 K/mm3 (4.5-10.0)
[2023-01-14 06:48] LABS: Anion Gap 8 mmol/L (8-16); Blood Urea Nitrogen 40 mg/dL (9-20); Calcium 8.6 mg/dL (8.4-10.2); Carbon Dioxide 31 mmol/L (22-30); Chloride 98 mmol/L (98-107); Estimated CRCL calculation 98 ml/min; Estimated Glomerular Filt Rate > 60; Glucose 98 mg/dL (65-110); Magnesium 2.7 mg/dL (1.6-2.3); Potassium 4.3 mmol/L (3.4-5.0); Sodium 137 mmol/L (137-145)
[2023-01-14 08:46] VITALS: BP 119/73; PULSE 88
[2023-01-14] MEDS: predniSONE 20 MG TABLET 60 MG PO (08:50)
[2023-01-14] MEDS: CYANOCOBALAMIN 500 MCG TABLET PO (08:51)
[2023-01-14] MEDS: guaiFENesin 600 MG/DEXTROMETHORPHAN 30 MG SR TAB 12 HR 1 TAB PO (08:51)
[2023-01-14] MEDS: levoFLOXacin 750 MG TABLET PO (08:52)
[2023-01-14] MEDS: IRBESARTAN 150 MG TABLET 300 MG PO (08:52)
[2023-01-14] MEDS: SPIRONOLACTONE 50 MG TABLET PO (08:53)
[2023-01-14] MEDS: LEVALBUTEROL NEB 1.25 MG/3 ML 0.63 MG INHALATION (08:54)
[2023-01-14] MEDS: IPRATROPIUM BR 0.02% INH SOLN 0.5 MG/2.5 ML VIAL INHALATION (08:54)
[2023-01-14 08:55] VITALS: PULSE 79; RESP 18; O2SAT 93
[2023-01-14 09:08] VITALS: PULSE 87; RESP 18
--- NOTE | 2023-01-14 09:54 | PM.DS ---
DS: Admitting Diagnosis Discharge Date 01/14/2023 Admitting Diagnosis Shortness of breath DS: Discharge Diagnosis Discharge Diagnosis (1) Acute respiratory failure with hypoxia: Code(s): J96.01 - Acute respiratory failure with hypoxia Status: Acute Assessment and Plan: ED-[facility] narrative: Patient 62-year-old gentleman who presents the emergency department with chief complaint of shortness of breath.? Patient reports that he was recently diagnosed with bronchitis started on Zithromax and reports that this evening he started getting very short of breath.? EMS was called and the patient was found to be hypoxic and was started on nasal cannula oxygen as well as receiving a breathing treatment.? 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 Patient is being treated with methylprednisone, bronchodilator, ceftriaxone, and azithromycin, on 01/11 patient lung sounded congested added low-dose Lasix, on 01/11 his lung more wheezing, and his BUN/Creatinine is rising, will stop lasix and CPM, 01/12 patient states feeling much better is requiring less oxygen 2 L compared to 4 L repeat chest x-ray on 01/11 showed improvement in infiltrates, patient states he does have a CPAP at home was not able to use it because, it has too much pressure, patient's family brought his CPAP machine and hospital setting were used last night, he was requiring oxygen, and will need oxygen tubing to his mask, for that patient will need apnea link tonigt, will monitor, patient's symptoms are improving will taper his Solu-Medrol to prednisone today, will continue to monitor will have a PT OT evaluate the patient and further recommendation to follow. (2) HTN (hypertension), benign: Code(s): I10 - Essential (primary) hypertension Status: Acute Assessment and Plan: Will continue home regimen and monitor (3) Morbid obesity with BMI of 50.0-59.9, adult: Code(s): E66.01 - Morbid (severe) obesity due to excess calories; Z68.43 - Body mass index [BMI] 50.0-59.9, adult Status: Acute Assessment and Plan: Will have a dietitian evaluate the patient as well as PT OT DS: Summary Hospital Course Reason for hospitalization: Shortness of breath Narrative: ED-HPI narrative: Patient 62-year-old gentleman who presents the emergency department with chief complaint of shortness of breath.? Patient reports that he was recently diagnosed with bronchitis started on Zithromax and reports that this evening he started getting very short of breath.? EMS was called and the patient was found to be hypoxic and was started on nasal cannula oxygen as well as receiving a breathing treatment.? 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 Patient is being treated with methylprednisone, bronchodilator, ceftriaxone, and azithromycin, patient lung sounds congested will add low-dose Lasix, will continue to monitor will have a PT OT evaluate the patient and further recommendation to follow. 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 Patient is being treated with methylprednisone, bronchodilator, ceftriaxone, and azithromycin,? on 01/11 patient lung sounded congested added low-dose Lasix, on 01/11 his lung more wheezing, and his BUN/Creatinine
== END 2023-01-14 11:41 | disposition home or self-care (01) | DRG 193 ==
LOC: ANHED 05:30 → ANHIMU 06:16 → ANH2MED 01-13 11:33
PROVIDERS: Admitting Provider Internal Medicine; Emergency Provider Emergency Medicine; PCP Family Medicine; Visit Provider Family Medicine
DX: J18.0 Bronchopneumonia, unspecified organism (principal); J96.01 Acute respiratory failure with hypoxia; E66.2 Morbid (severe) obesity with alveolar hypoventilation; Z68.43 Body mass index [BMI] 50.0-59.9, adult; I10 Essential (primary) hypertension; M18.9 Osteoarthritis of first carpometacarpal joint, unspecified; M17.12 Unilateral primary osteoarthritis, left knee; Z20.822 Contact with and (suspected) exposure to COVID-19; Z87.891 Personal history of nicotine dependence; Z86.718 Personal history of other venous thrombosis and embolism; Z79.01 Long term (current) use of anticoagulants
CPT/HCPCS: 36415; 36569; 36600; 71045; 71046; 71275; 80048; 80053; 82805; 83605; 83735; 83880; 84145; 84484; 85025; 85027; 85610; 85730; 87040; 87637; 93005; 94003; 94618; 94640; 94660; 94762; 96375; 99285; A9270; C1751; G0378; J0456; J0696; J1940; J2930; J7512; Q9967

== ENCOUNTER 2024-11-16 09:32 | Outpatient (CLI) | payer MEDICARE, SELFPAY ==
--- NOTE | ~2024-11-16 | NM_ITS ---
EXAMINATION: NM shireen stress w perfusion DATE: 11/16/2024 11:47 INDICATION: Dyspnea TECHNIQUE: Rest images were obtained following intravenous administration of 9.6 mCi Tc99m tetrofosmi n (Myoview). The patient was infused intravenously with Lexiscan (Regadenoson). Then, 31.8 mCi Tc99m tetrofosmin (Myoview) was administered intravenously, and stress images were obtained. Data was recon structed into short axis and horizontal and vertical long axis SPECT images. Gated SPECT images were also obtained. COMPARISON: None. FINDINGS: There is no definite reversible or fixed perfusion abnormality to suggest ischemia or infar ction. There is normal left ventricular chamber size, wall motion and ejection fraction. Left ventr icular ejection fraction measures 67%. IMPRESSION: 1. Normal myocardial perfusion at rest and during stress. 2. Left ventricular ejection fraction measuring 67%. Reviewed, dictated and finalized at location A. TRONICS INSTRUCTOR
--- OUTSIDE RECORDS SUMMARY | 2024-11-16 09:40 | XMS_ITS | Clinical Summary ---
Author Organization [facility] Address [address] [place] [id number] Care Team Providers Care Psychologist Private Practice Name Role Phone Karthikeyan Tyler MD Primary Care Provider [phone] Family History Medical History Relation Name Comments Hypertension Mother Family history of hypertension - (Added by TW Conv) Relation Name Status Comments Mother Social History Tobacco Use Types Packs/Day Years Used Date Smoking Tobacco: Former Personal Safety Answer Date Recorded Getting School Help Needed Not on file 12/12 Sex and Gender Information Value Date Recorded Sex Assigned at Not on file Legal Sex Male 12:45 PM [employer] P[employer] Gender Identity Not on file Sexual Orientation Not on file Obstetrics History Last Filed Vital Signs Vital Sign Reading Time Taken Comments Blood Pressure - - Pulse - - Temperature - - Respiratory Rate - - Oxygen Saturation - - Inhaled Oxygen Concentration - - Weight 150.4 kg (331 lb 7.7 oz) 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
--- OUTSIDE RECORDS SUMMARY | 2024-11-16 09:40 | XMS_ITS | Referral Summary ---
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 Gender Identity Not on file Sexual Orientation Not on file Last Filed Vital Signs Vital Sign Reading Time Taken Comments Blood Pressure - - Pulse - - Temperature - - Respiratory Rate - - Oxygen Saturation - - Inhaled Oxygen Concentration - - Weight 150.4 kg (331 lb 7.7 oz) 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
--- NOTE | 2024-11-16 09:54 | EST_ITS ---
Patient Info Name: Valentino Winn Age: 64 years : 1960 Gender: Male Ht: 69 in Wt: 390 lbs BSA: 3.04 m2 HR: 68 bpm BP: 129 / 78 mmHg Exam Date: 11/16/2024 10:40 AM Exam Location: Echo Lab Patient Status: Outpatient Admit Date: 11/16/2024 Staff Ordering Physician: Karthikeyan Tyler MD Attending Provider: Karthikeyan Tyler MD Exercise Technologist: Norm PRITCHARD RRT Exercise Physician: Tay Corado DO Exam Type: CA stress shireen w NM Study Info Indications R06.00 - Dyspnea, unspecified A regadenoson stress test was performed. Summary 1. 1. Negative lexiscan stress test for ischemic ST changes by ECG criteria. 2. 2. Stable hemodynamics throughout the test. 3. 3. Nuclear scan to follow and will be reported separately. Please correlate with it. 4. 4. Patient informed of the above results. Protocol: Lexiscan Stress ECG Details Stage: REST Duration (min): 0 min : 17 sec HR (bpm): 68 SBP (mmHg): --- DBP (mmHg): --- Stage: REST Duration (min): 5 min : 19 sec HR (bpm): 80 SBP (mmHg): 129 DBP (mmHg): 78 Stage: STAGE 1 Duration (min): 0 min : 59 sec HR (bpm): 87 SBP (mmHg): 136 DBP (mmHg): 77 Stage: RECOVERY Duration (min): 1 min : 0 sec HR (bpm): 90 SBP (mmHg): 136 DBP (mmHg): 77 Stage: RECOVERY Duration (min): 1 min : 6 sec HR (bpm): 89 SBP (mmHg): 136 DBP (mmHg): 77 Rest HR: 80 bpm Peak HR: 92 bpm Rest Sys BP: 129 mmHg Peak Sys BP: 136 mmHg Max Pred HR: 155 bpm % Max Pred HR: 59 % Target HR: 132 bpm Max RPP: 12,512 bpm*mmHg Termination Reason: Completed protocol Cardiac Symptoms: None Total Time: 1 min : 0 sec Rest Coffman BP: 78 mmHg Peak Coffman BP: 77 mmHg Total Dose: 0.4 mg Resting ECG Sinus rhythm. Stress ECG No ST changes. Arrhythmias None. Report Signatures
== END 2024-11-16 09:33 | disposition home or self-care (01) ==
PROVIDERS: PCP Family Medicine; Visit Provider Family Medicine
DX: R06.09 Other forms of dyspnea (principal)
CPT/HCPCS: 78452; 93017; A9502; J2785

== ENCOUNTER 2024-12-19 01:31 | Day surgery (SDC) | payer MEDICARE, SELFPAY ==
[2024-12-09 09:35] VITALS: BMI 56.0
--- NOTE | 2024-12-09 14:17 | PC.NURSE ---
Spoke with patient regarding medication Xarelto. Patient verbalizes understanding that the last dose is to be taken on 12/16/2024 and the Endoscopist will instruct them when to restart after the procedure.
--- OUTSIDE RECORDS SUMMARY | 2024-12-19 01:34 | XMS_ITS | Data Portability ---
Author Organization [place] [facility], Main Office Address [address] [place] [address] Care Team Providers Care Pulp Grinder Feeder Name Role Phone LEXI JALLOH Primary Care Provider LEXI JALLOH Referring Provider Assessment Encounter Date Assessment Date Assessment LastModified by Organization Details LastModified Time 11/28/2024 11/28/2024 The patient has moderately severe primary osteoarthritis left knee joint localized in the medial and patellofemoral compartments noted on x-ray today. We talked about treatment options in detail today he can not take oral anti-inflammatory medication due to the fact he is on Xarelto we are somewhat limited in our treatment plan. He declined steroid pills he would rather try a home exercise program declined formal therapy. We also talked about injections he wanted proceed with cortisone we talked about gel shot series as well. We will start with cortisone, under sterile conditions I injected the patient's left knee joint in the office with 4 cc of 0.5% bupivacaine and 20 mg of Kenalog. The patient tolerated the procedure well. I will see him back in 6 weeks to see what impact treatment has had. If his symptoms continue we could consider gel shots. We talked about weight loss as well this will be important for his long-term health as well as the possibility of knee arthroplasty somewhere down the road. We talked about low-impact exercise and proper exercises for knee osteoarthritis. He is going to modify his workout routine and also his diet to see if he can shed a few lbs. He voiced understanding and agreed with the above plan he will call for any further problems difficulties or questions. [email or web address] Not available 11/28/2024 10:03:26 Plan of Treatment Reminders Order Date Submit Date Provider Last Modified By Organization Details Last Modified Time Details Appointments Any 5 2024 08:45SHLOMO Mckeon Not available Not available Not available Lab None recorded. Referral None recorded. Procedures injection /aspirati on joint/bur sa (PROC) 2024 025 [email or web address] In-Office Order, Internal Use Only DO Not Attach Compendium DO Not Attach Compendium, Do Not Delete/merge, [id number] 11/28/2024 09:30:46 Surgeries None recorded. Imaging XR, knee 2024 025 [email or web address] [facility], [address], [place], [address], 11/28/2024 11:03:06 Medication Orders bupivacai ne HCl 0.5 % (5 mg/mL) injection solution 2024 025 [employer] [id number], [address], [phone], 11/28/2024 11:03:06 Kenalog 10 mg/mL suspensio n for injection 2024 025 [employer] [facility] #[id number], [address] [facility] [address] [place] [address], [phone], 11/28/2024 11:03:06 Patient TargetsNo targets recorded. Patient InstructionsNo instructions recorded. Reason for Referral None Reported. Results Created Date Observation Date Name Description Value Unit Range Abnormal Flag Note LastModifiedBy Organization Detail LastModifiedTime 11/29/19 25 XR, knee No observ ation record ed. [email or web address] [facility] [address], [place], [address], 11/28/2024 10:04:41 Result Notes None recorded. Problems Name Problem SNOMED Code Status Onset Date Resolution Date Notes Provider Name and Address Organization Details Recorded Time Partial thickness rotator cuff tear 639629033 Active Not Available [facility] 3 19:28:38 Shoulder joint pain 567677713 Active Not Available [facility] 3 19:28:38 Pain of left knee joint 8110385752154 07 Active 2024 CASEY Valladares, [place] - [facility] 09:29:24 Osteoarthr itis of left knee joint 0484898127579 09 Active 2024 SHLOMO Steward [address] [facility], [address], [place], [address] , [facility] 10:04:53 Problem Notes None recorded. Procedures Surgical History Date Name Laterality Status Provider Name and Address Organization Details Recorded Time Knee arthroscopy/s urgery completed Jes Herndon CNA [place] [facility] 11/28/2024 09:28:32 Rotator cuff surgery completed Jes Herndon CNA [facility] 11/28/2024 09:28:57 Imaging Results Imaging Date Name Status LastModified by Organiz ation Details LastModified Time 11/28/2024 XR, knee completed [email or web address] [facility] [address] [facility] [address], [place], [address], 11/28/2024 10:04:41 Procedure Notes None recorded. Medical Equipment None Reported. Allergies Allergen ID Allergen Name Allergen Category Reaction Reaction Severity Criticality Documentation Date Start Date Code Code System Note Provider Name and Address Organization Details Recorded Time 57609 Product containin g penicilli n (product) medicatio n Not available Not available Not available 11/28/2024 74916 8001 SNOMED CASEY Valladares, [place] - [facility] 09:24:03 Medications Name Sig Start Date Stop Date Status Note LastModified by Organization Details LastModified Time azithromyci n 250 mg tablet TK 2 TS PO ON DAY 1, THEN TK 1 T PO D FOR 4 DAYS 11/28 completed Not Available Not Available Not Available lisinopril 20 mg tablet TK 1 T PO D 05/27 completed Not Available Not Available Not Available bupivacaine HCl 0.5 % (5 mg/mL) injection solution Take 20 mg by injection route. 2024 active Not Available Not Available Not Avai lable Kenalog 10 mg/mL suspension for injection Take 20 mg by injection route. [address] [facility]: [phone] Not Available Not Available Not Available Vitamin C 100 mg tablet Take 1 tablet every day by oral route. active Not Available Not Available No t Available cephalexin 500 mg capsule 05/27 completed Not Available Not Available Not Available methylpredn isolone 4 mg tablets in a dose pack 05/27 completed Not Available Not Available Not Available doxycycline hyclate 100 mg tablet 05/27 completed Not Available Not Available Not Available irbesartan 300 mg tablet TAKE 1 TABLET BY MOUTH DAILY active Not Available Not Available No t Available naproxen 500 mg tablet 05/27 completed Not Available Not Available Not Available spironolact one 50 mg tablet TAKE 1 TABLET BY MOUTH EVERY MORNING active Not Available Not Available No t Available Cinnamon 1000 MG DAILY active Not Available Not Available No t Available Xyzal PRN active Not Available Not Availa ble Not Available B12 500 DAILY active Not Available Not Komal ilable Not Available Xarelto 20 mg tablet TAKE 1 TABLET BY MOUTH DAILY active Not Available Not Available No t Available Centrum Silver Men DAILY active Not Available Not Available N ot Available turmeric 1500 MG DAILY active Not Available Not Available No t Available Vitals Date Recorded Body height Body mass index (BMI) Body weight Provider Name and Address Organization Details Last Updated DateTime 11/28/2024 177.8 cm 56 kg/m2 057252.02 g Jes Herndon CNA Client24 11/28/2024 09:23:43 Social History Question Answer Notes LastModified by Organizat ion Details LastModified Time Tobacco Smoking Status Never Smoker Jes YanickCASEY guan null, Client24 11/28/2024 09:28:09 What Is Your Level Of Alcohol Consumption? None [email or web address] Information not available 11/28/2024 Sex: Unknown Functional Status None recorded. Mental Status None recorded. Family History Nothing Reported. Medical History Condition Response ARTHRITIS Y Past Encounters Encounter ID Performer Location Encounter Start Date Encounter Closed Date Diagnosis/Indication Diagnosis SNOMED-CT Code Diagnosis ICD10 Code Diagnosis Note [id number] SHLOMO Steward [facility] [address] [place] [address] 11/28/2024 09:09:17 11/28/2024 10:47:41 Pain of left knee joint 3644716697 11231 M25.562 Osteoarthr itis of left knee joint 6878168385 07263 M17.12 Health Concerns Section Related Observation LastModified by Organization Detai ls LastModified Time None Recorded Concern Status LastModified by Organization Details LastModified Time None Recorded Advance Directives Directive None Recorded Payers Encounter Date Sequence Insurance Name Policy Number Policy Duff Covered Member ID Duff Member ID Guarantor Name 11/28/2024 1 [employer] (MEDICARE REPLACEMENT/A DVANTAGE - PPO) Valentino Winn Jr [id number] Valentino Winn Notes Date Note Type Note Provider Name and Address Organization Details Recorded Time 11/28/2024 text/html The patient is a 64-year-old male who presents with a several month history of left knee pain. He states several years ago he had a left knee arthroscopy for partial medial meniscectomy. His knee was doing okay at a little twinge of pain on and off but for the most part was doing all right. Recently he has had some more knee pain when ambulating. Pain is about a 6 on a scale of 1-10 really no pain at rest. Occasionally he will take some ibuprofen [id number] but he is on Xarelto so he can not take this on a regular basis. He does have some generalized swelling in the left leg due to the previous DVT that he is being treated for. Otherwise no specific knee swelling no erythema heat or other signs of infection and no mechanical symptoms no locking or catching. Pain seems to be localized mainly medially. He states he likes to go to the gym tries to keep his legs in good shape and keep his overall health in check. Unfortunately he is 5 ft 10 in tall 390 lb his BMI is 56. We talked about the fact that weight loss may help his knee pain his x-rays today do show moderately severe primary osteoarthritis with significant narrowing of the medial and patellofemoral compartments which are consistent with his knee pain. He comes in today for initial evaluation treatment. A new past medical history sheet was reviewed and signed on the intake sheet of today's date drug allergies current medications family social history previous surgical history 10 point review of systems was reviewed and discussed in detail today with the patient. SHLOMO Steward [address], [address], [place], [address], [place] [facility] 11/28/2024 10:06:14"
--- OUTSIDE RECORDS SUMMARY | 2024-12-19 01:35 | XMS_ITS | Referral Summary ---
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[employer] Gender Identity Not on file Sexual Orientation Not on file Last Filed Vital Signs Vital Sign Reading Time Taken Comments Blood Pressure - - Pulse - - Temperature - - Respiratory Rate - - Oxygen Saturation - - Inhaled Oxygen Concentration - - Weight 150.4 kg (331 lb 7.7 oz) 10/08/2017 8:47 AM SU[employer] Height 177.8 cm (5' 10 ) 10/08/2017 8:47 AM SUPERVISOR [employer] Body Mass Index 47.56 10/08/2017 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
--- OUTSIDE RECORDS SUMMARY | 2024-12-19 01:35 | XMS_ITS | Continuity of Care Document ---
Author Organization [facility] Address [address] [place] [address] Phone Care Team Providers Care Machine I Engraver Name Role Phone Khoury OD, Shimon Unavailable Unavailable Advance Directives Directive Yes / No Effective Date File Name No Information Encounters Encounter Description Practice Location Reason(s) For Visit Diagnoses Date Provider Providers Copied on Encounter [facility], [address] [place] [address] [address], [place], [place], [id number], [place] tel:[phone] [facility] [place] No Information Aug-0 1-200 1 Khoury OD Shimon. [address] [place] , [address], [place], [address], [place]. tel:[phone] Family History Family Member Type Diagnosis Age At Onset No Information Payers Payer name Insurance type Covered libertarian ID Authoriza tion(s) No Information Social History Type Description Quantity Date Captured Comments Sex Male Smoking Status No Information Chief Complaint And Reason For Visit No Information Reason For Referral Reason For Referral No Information History Of Present Illness Encounter Date Complaint History Of Prese nt Illness No Information Functional Status Date Functional Assessmen t No Information Instructions Date Instruction Additional Infor mation No Information Assessments Type Assessment Date No Information Patient Care Teams Name Effective Dates (start - stop) Status Members No Information
--- OUTSIDE RECORDS SUMMARY | 2024-12-19 01:35 | XMS_ITS | Clinical Summary ---
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 Gender Identity Not on file Sexual Orientation Not on file Obstetrics History Last Filed Vital Signs Vital Sign Reading Time Taken Comments Blood Pressure - - Pulse - - Temperature - - Respiratory Rate - - Oxygen Saturation - - Inhaled Oxygen Concentration - - Weight 150.4 kg (331 lb 7.7 oz) 10/08/2017 8:47 AM DRIVER RECRUITER Height 177.8 cm (5' 10 ) 10/08/2017 8:47 AM DRIVER RECRUITER Body Mass Index 47.56 10/08/2017 8:47 AM DRIVER RECRUITER Plan of Treatment Not on file Insurance [facility] H[facility]/PPO Address: [address] [address] Care Teams Edger Machine Helper Relationship Specialty Start Date End Date Karthikeyan Tyler MD PCP - General 09/17/17
--- OUTSIDE RECORDS SUMMARY | 2024-12-19 01:35 | XMS_ITS | Continuity of Care Document ---
Author Organization [facility] Address [address] [facility] [address] [place] [address] Phone Care Team Providers Care Hadoop Admin Name Role Phone Ángel PT,MPT,ATC, Yann Unavailable Unavai lable Procedures Procedure Date Therapeutic Activities Neuromuscular Re-Ed Therapeutic Activities Neuromuscular Re-Ed Therapeutic Exercise Therapeutic Activities Neuromuscular Re-Ed Therapeutic Exercise Therapeutic Activities Neuromuscular Re-Ed Therapeutic Exercise Therapeutic Activities Neuromuscular Re-Ed Therapeutic Exercise Therapeutic Activities Neuromuscular Re-Ed Therapeutic Exercise Therapeutic Activities Neuromuscular Re-Ed Therapeutic Exercise Doc neg elder mal no plan PT Evaluation Moderate Complexity Therapeutic Activities Neuromuscular Re-Ed Advance Directives Directive Yes / No Effective Date File Name No Information Encounters Encounter Description Practice Location Reason(s) For Visit Diagnoses Date Provider Providers Copied on Encounter [facility] [address], [place], [place], [address], [place] tel:[phone] [place] No Information 3 ZHEN Colvin, [place]. [facility], [address], [place], [place], [address], [place] tel:[phone] [place] No Information Nov-0 7-202 3 [place] Godwin. . Referring Provider: Joel Johnson, Ramana4 [facility] [address], [place], [address]. tel:[phone] [facility], [address], [place], [place], [address], [place] tel:[phone] [place] No Information Oct-3 1-202 3 [place] Godwin. . Referring Provider: Joel Johnson, Patel [facility] [address], [place], [address]. tel:[phone] [facility], [address], [place], [place], [address], [place] tel:[phone] [place] No Information Jun-2 7-202 3 [place] Godwin. . Referring Provider: Joel Johnson, Patel [facility] [address], [place], [address]. tel:[phone] [facility], [address], [place], [place], [address], [place] tel:[phone] [place] No Information Jun-2 4-202 3 [place] Godwin. . Referring Provider: Joel Johnson, Patel [facility] [address], [place], [address]. tel:[phone] [facility] [address], [place], [place], [address], [place] tel:[phone] [place] No Information Jun-2 0-202 3 [place], [place], [place]. Referring Provider: Ramana Aguirre4 [facility] [address], [place], [address]. tel:[phone] [facility], [address], [place], [place], [address], [place] tel:[phone] [place] No Information Jun-1 7-202 3 [place] Godwin. . Referring Provider: Joel Johnson, [address] [facility] [address], [place], [address]. tel:[phone] [facility], [address] [place], [place] [address], [place], [place], [address], tel:[phone] [place] No Information 3 [place], [place], . Referring Provider: Joel Johnson, [address] [facility] [address], [place], [address]. tel:[phone] [address], [place], [place], [address], tel:[phone] [place] No Information 3 [place], [place], . Referring Provider: Joel Johnson, [address] [facility] [address], [place], [address]. tel:[phone] Family History Family Member Type Diagnosis Age At Onset No Information Payers Payer name Insurance type Covered libertarian ID Authorjonaha enidjaquan(s) [employer] Medicare Replacement 16 [id number] Social History Type Description Quantity Date Captured Comments Sex Male Smoking Status No Information Chief Complaint And Reason For Visit No Information Reason For Referral Reason For Referral No Information History Of Present Illness Encounter Date Complaint History Of Prese nt Illness No Information Functional Status Date Functional Assessmen t No Information Instructions Date Instruction Additional Infor wendy Giving encouragement to exercise Related to Overweight Giving encouragement to exercise Related to Overweight Assessments Type Assessment Date No Information Patient Care Teams Name Effective Dates (start - stop) Status Members No Information
[2024-12-19 08:19] VITALS: BP 134/80; PULSE 70; RESP 18; TEMP 36.1; O2SAT 96
[2024-12-19] MEDS: LACTATED RINGERS 1,000 ML 150 ML IV CONT (08:28)
--- NOTE | 2024-12-19 08:28 | P.PNAN_ITS ---
Anes - Initial Pre Proc Eval Procedure: Operation Date: 12/19/24 09:30 Proposed Procedures p Screening Colonoscopy - Bart Funez DO Date/Time: 12/19/24 08:28 Surgeon: Bart Funez DO Pre Op Diagnosis: Screening for malignant neoplasm of colon Patient Data Age: 64 Gender: M Height: 1.78 m Weight: 180.2 kg Last Vital Signs Temp 97 F L 12/19/24 08:19 Pulse 70 12/19/24 08:19 Resp 18 12/19/24 08:19 BP 134/80 12/19/24 08:19 Pulse Ox 96 12/19/24 08:19 O2 Del Method Room Air 12/19/24 08:19 Allergies Allergy/AdvReac Type Severity Reaction Status Date / Time Penicillins Allergy Unknown Rash Verified 12/19/24 08:17 amlodipine AdvReac Intermediate feet Verified 12/19/24 08:17 swelling Home Medications ?Medication ?Instructions ?Recorded ?Confirmed ?Type multivitamin 1 tablet PO DAILY 11/09/19 12/19/24 History cinnamon bark 500 mg capsule 1,000 mg PO DAILY 10/03/20 12/19/24 History (Cinnamon) levocetirizine 5 mg tablet (Xyzal) 5 mg PO DAILY PRN Itching 12/12/22 12/09/24 History cyanocobalamin (vitamin B-12) 500 500 mcg PO DAILY 01/10/23 12/19/24 History mcg tablet fluticasone propionate 50 1 spray intranasal BID 06/29/24 12/19/24 History mcg/actuation nasal spray,suspension (Flonase Allergy Relief) rivaroxaban 20 mg tablet (Xarelto) 20 mg PO DAILY #90 tabs 07/28/24 12/19/24 Rx spironolactone 50 mg tablet 50 mg PO QAM #90 tabs 08/26/24 12/19/24 Rx irbesartan 300 mg tablet See Rx Instructions .Route 09/22/24 12/19/24 Rx .COMPLEX #90 tabs ascorbic acid (vitamin C) 1,000 mg 1 g PO DAILY 11/07/24 12/19/24 History capsule turmeric root extract 500 mg 500 mg PO DAILY 11/07/24 12/19/24 History capsule beet root 1,000 mg PO DAILY 12/09/24 12/19/24 History Patient hx anesthesia problems: none Family hx anesthesia problems: none Results Review: All pre-operative results and documents have been reviewed as part of the pre- operative evaluation. [facility] Past Medical History Medical History Colon polyp Arthritis lower back lumbar Arthritis of carpometacarpal (CMC) joint of both thumbs Tear of medial meniscus of left knee Osteoarthritis of left knee Morbid obesity with BMI of 50.0-59.9, adult HTN (hypertension), benign Sleep disorder Sexual dysfunction Rotator cuff dysfunction (~2017) Surgical History Surgical History S/P right rotator cuff repair History of arthroscopy of left knee Partial medial meniscectomy July 15, 2021 H/O eye surgery H/O hernia repair (~1987) Family History Family History Grandparent Diabetes mellitus Mother Hypertension Chronic obstructive pulmonary disease Father Healthy adult Social History Social History Years smoked: 10 Smoking status: Former smoker Tobacco type: cigarettes Second hand tobacco smoke exposure: No Smoking end date: 07/29/85 Alcohol intake: current Drinks per week: 1 Alcohol use details: rarely Substance use: never Substance use type: does not use Lack of Transportation: No Lack of Food: Never True Current Housing: I Have Housing Concerned About Future Housing: No Difficulty Paying Gas/Electric Bills: No Difficulty Paying for Meds: No Currently Unemployed: No Education: High School Diploma/GED Difficulty w/ Childcare or Family Care: No Living arrangements: with family Occupation/Education: retired Gender identity (if verbalized by the patient): Male Spiritual care concerns: Yes (Pt does not eat pork or shellfish.) Anes - Eval Final PreProcedure Day of Procedure 12/19/24 08:28 Patient weight: super morbidly obese Lungs: normal air movement Airway: Mallampati scale class II Neurological: alert and oriented Last oral intake: >/= 8 hours ASA classification: IV Emergent: no Anesthetic plan: proceed Anesthesia type and monitoring: general GIVS and standard monitoring Results Review: All pre-operative results and documents have been reviewed as part of the pre- operative evaluation. HTN, SHANITA on CPAP, pt w hx of DVT 2017, cleared to hold AC for 3 days. Informed Consent: The patient's anesthetic plan and its attendant risks and benefits were discussed with the patient/family/POA. Questions were solicited and answers pro vided to the satisfaction of the patient/family/POA.
--- NOTE | 2024-12-19 08:46 | PM.IMHP ---
H&P: HPI History of Present Illness Date/Time: 12/19/24 08:46 Chief Complaint: screening for colorectal cancer Narrative: this is a 64-year-old man who presents for colonoscopy. His last colonoscopy was 7 years ago and a couple polyps were removed at that time. He did have an episode of some hematochezia about 1 month ago, but that resolved on its own. He denies any family history of colon cancer. Review of Systems Review of Systems: All systems reviewed & are unremarkable except as noted in HPI and below Constitutional: Constitutional: Denies chills, Denies fever(s), Denies headache(s) and Denies weight loss Eyes: Eyes: Denies change in vision ENT: Denies dizziness, Denies headache(s), Denies neck mass and Denies throat swelling Cardiovascular: Cardiovascular: Denies chest pain, Denies lightheadedness and Denies dyspnea Respiratory: Respiratory: Denies cough, Denies dyspnea and Denies wheezing Gastrointestinal: Gastrointestinal: Denies abdominal pain, Denies change in bowel habits, Denies nausea and Denies vomiting Genitourinary: Genitourinary: Denies hematuria and Denies dysuria Musculoskeletal: Musculoskeletal: Reports as per HPI Integumentary/Breasts: Skin/Breast: Reports as per HPI Neurologic: Denies dizziness and Denies headache(s) Allergic/Immunologic: Allergic/Immunologic: Denies throat swelling and Denies wheezing [facility] Past Medical History Medical History Colon polyp Arthritis lower back lumbar Arthritis of carpometacarpal (CMC) joint of both thumbs Tear of medial meniscus of left knee Osteoarthritis of left knee Morbid obesity with BMI of 50.0-59.9, adult HTN (hypertension), benign Sleep disorder Sexual dysfunction Rotator cuff dysfunction (~2017) Surgical History Surgical History S/P right rotator cuff repair History of arthroscopy of left knee Partial medial meniscectomy July 15, 2021 H/O eye surgery H/O hernia repair (~1987) Family History Family History Grandparent Diabetes mellitus Mother Hypertension Chronic obstructive pulmonary disease Father Healthy adult Social History Social History Years smoked: 10 Smoking status: Former smoker Tobacco type: cigarettes Second hand tobacco smoke exposure: No Smoking end date: 07/29/85 Alcohol intake: current Drinks per week: 1 Alcohol use details: rarely Substance use: never Substance use type: does not use Lack of Transportation: No Lack of Food: Never True Current Housing: I Have Housing Concerned About Future Housing: No Difficulty Paying Gas/Electric Bills: No Difficulty Paying for Meds: No Currently Unemployed: No Education: High School Diploma/GED Difficulty w/ Childcare or Family Care: No Living arrangements: with family Occupation/Education: retired Gender identity (if verbalized by the patient): Male Spiritual care concerns: Yes (Pt does not eat pork or shellfish.) Meds Home Medications and Allergies Home Medications ?Medication ?Instructions ?Recorded ?Confirmed ?Type multivitamin 1 tablet PO DAILY 11/09/19 12/19/24 History cinnamon bark 500 mg capsule 1,000 mg PO DAILY 10/03/20 12/19/24 History (Cinnamon) levocetirizine 5 mg tablet (Xyzal) 5 mg PO DAILY PRN Itching 12/12/22 12/09/24 History cyanocobalamin (vitamin B-12) 500 500 mcg PO DAILY 01/10/23 12/19/24 History mcg tablet fluticasone propionate 50 1 spray intranasal BID 06/29/24 12/19/24 History mcg/actuation nasal spray,suspension (Flonase Allergy Relief) rivaroxaban 20 mg tablet (Xarelto) 20 mg PO DAILY #90 tabs 07/28/24 12/19/24 Rx spironolactone 50 mg tablet 50 mg PO QAM #90 tabs 08/26/24 12/19/24 Rx irbesartan 300 mg tablet See Rx Instructions .Route 09/22/24 12/19/24 Rx .COMPLEX #90 tabs ascorbic acid (vitamin C) 1,000 mg 1 g PO DAILY 11/07/24 12/19/24 History capsule turmeric root extract 500 mg 500 mg PO DAILY 11/07/24 12/19/24 History capsule beet root 1,000 mg PO DAILY 12/09/24 12/19/24 History Allergies Allergy/AdvReac Type Severity Reaction Status Date / Time Penicillins Allergy Unknown Rash Verified 12/19/24 08:17 amlodipine AdvReac Intermediate feet Verified 12/19/24 08:17 swelling Vital Signs Vital Signs - 24 hr 12/19/24 08:19 Temperature 97 F L Pulse Rate 70 Respiratory Rate 18 Blood Pressure 134/80 Pulse Oximetry 96 Oxygen Delivery Room Air Exam Const: General: no acute distress and alert Orientation/consciousness: patient oriented x3 HENMT: Head: normocephalic and atraumatic Ears: hearing grossly normal bilaterally Face/Nose/Sinus: Normal nares present Mouth: Yes Normal oral and palatal mucosa present Eyes: Periorbital: periorbital findings normal Sclera: sclerae normal EOM: EOMs intact bilaterally Neck: Neck: normal visual inspection, no lymphadenopathy and trachea midline Chest: Chest palpation & inspection: normal inspection of the chest Resp: Effort & Inspection: normal respiratory effort Auscultation: clear to auscultation bilaterally Cardio: Jugular venous distension: no JVD Rate: regular rate Rhythm: regular rhythm Heart sounds: S1 normal heart sound present and S2 normal heart sound present Peripheral pulses: Peripheral pulses 2+ throughout GI: Inspection: normal to inspection GI Palp: Yes Soft to palpation, No Tenderness to palpation present (GI), No Guarding due to palpation present (GI) and No Rebound tenderness present Percussion: Yes normal to percussion Auscultation: normal bowel sounds : General: Yes no CVA tenderness Back/Spine/Pelvis: Back: no CVA tenderness Neuro: General: patient oriented x3, no focal motor deficits and CN's II-XI intact bilaterally Cognition (Neuro): normal cognition Speech: normal speech Motor exam (neuro): 5/5 motor strength present throughout Extrem: General: capillary refill normal and no clubbing, cyanosis or edema Assessment and Plan Assessment and plan (1) Colon cancer screening: Code(s): Z12.11 - Encounter for screening for malignant neoplasm of colon Status: Acute Assessment and Plan: I have recommended colonoscopy. I have discussed the procedure, risks, benefits, and alternatives. Questions were answered. Patient is agreeable to proceed.
[2024-12-19 09:14] VITALS: BP 85/42; PULSE 54; RESP 18; O2SAT 96
[2024-12-19 09:24] VITALS: BP 101/50; PULSE 52; RESP 18; O2SAT 97
[2024-12-19 09:34] VITALS: BP 104/52; PULSE 54; RESP 18; O2SAT 97
== END 2024-12-19 09:52 | disposition home or self-care (01) ==
PROVIDERS: PCP Family Medicine; Visit Provider Surgery
PROC: 0DJD8ZZ Inspection of Lower Intestinal Tract, Via Natural or Artificial Opening Endoscopic (ICD-10-PCS; CPT 45378; principal; 2024-12-19 09:30)
DX: Z12.11 Encounter for screening for malignant neoplasm of colon (principal); D12.3 Benign neoplasm of transverse colon; K57.30 Diverticulosis of large intestine without perforation or abscess without bleeding; Z87.891 Personal history of nicotine dependence; E66.01 Morbid (severe) obesity due to excess calories; Z68.43 Body mass index [BMI] 50.0-59.9, adult
CPT/HCPCS: 45380; 88305; J2003; J2704; J7120

== ENCOUNTER 2025-08-21 15:52 | Outpatient (CLI) | payer MEDICARE, SELFPAY ==
--- NOTE | ~2025-08-21 | XR_ITS ---
XR lumbar spine 2-3V Indication: Low back pain, unspecified pain x 2 months, no inj Comparison: None Findings: Grade 1 anterolisthesis L4 on L5, no acute fracture. Severe loss of disc at L5-S1. Soft tissues unremarkable Impression: No acute abnormality. Reviewed, dictated and finalized at location [facility] Impression: No acute abnormality.
== END 2025-08-21 15:53 | disposition home or self-care (01) ==
LOC: GOSHIMG 15:52
PROVIDERS: PCP Nurse Practitioner Family; Visit Provider Nurse Practitioner Family
DX: M54.50 Low back pain, unspecified (principal)
CPT/HCPCS: 72100